=== PATIENT | male | born 1945 | race Caucasian/White ===

== ENCOUNTER 2022-02-28 07:15 | Outpatient (CLI) | payer OTHER, SELFPAY ==
[2022-02-28 13:12] LABS: Albumin* 3.8 g/dL (3.3-5.0); Chloride* 100 mmol/L (96-114); Potassium* 4.6 mmol/L (3.6-5.1); Sodium* 134 mmol/L (135-149)
[2022-02-28 13:14] LABS: Blood Urea Nitrogen* 36 mg/dL (7-30); Carbon Dioxide* 28 mmol/L (20-32); Cholesterol* 144 mg/dL (90-199); Creatinine* 1.5 mg/dL (0.5-1.5); Estimated Glomerular Filt Rate 48 ml/min
[2022-02-28 13:15] LABS: Calcium* 9.7 mg/dL (8.4-10.6); Glucose* 114 mg/dL (60-115); HDL Cholesterol* 58 mg/dL (>=40); LDL Cholesterol Calculated 51 mg/dL (<100); Phosphorus* 3.9 mg/dL (2.5-4.5); Triglycerides* 175 mg/dL (40-149); Uric Acid* 7.6 mg/dL (2.2-8.4)
[2022-02-28 13:19] LABS: Creatinine Urine 45.8 mg/dL
[2022-02-28 15:35] LABS: Microalbumin Creatinine Ratio 3120 mg/g (0-30); Microalbumin Urine 143 mg/dL
== END 2022-02-28 07:16 | disposition home or self-care (01) ==
PROVIDERS: PCP Family Medicine; Visit Provider Internal Medicine Nephrology
DX: E11.9 Type 2 diabetes mellitus without complications (principal); N18.32 Chronic kidney disease, stage 3b; R80.9 Proteinuria, unspecified
CPT/HCPCS: 80061; 80069; 82043; 82570; 84550; 87086

== ENCOUNTER 2022-05-14 09:15 | Outpatient (CLI) | payer OTHER, SELFPAY ==
--- NOTE | 2022-05-14 09:30 | CRLHL7_ITS ---
For Patients: As a result of the Cures Act, medical imaging exams and procedure reports are released immediately into your electronic medical record. You may view this report before your referring provider. If you have questions, please contact your health care provider. INDICATION: Lung cancer screening. History of smoking. High risk patient with greater than 50 pack-year smoking history. TECHNIQUE: Low-dose lung cancer screening non-contrast CT chest. Dose reduction techniques were used. COMPARISON: None. FINDINGS: NODULES: 3.9 millimeter nodule right lower lobe, . LUNGS AND PLEURA: Mild emphysema. No infiltrate. MEDIASTINUM: No adenopathy. CORONARY ARTERY CALCIFICATION: Severe. LIMITED UPPER ABDOMEN: Multiple renal cysts, unchanged from CT abdomen 04/26/2021. MUSCULOSKELETAL: Multilevel degenerative changes. IMPRESSION: 3.9 millimeter right lower lobe nodule. LUNG-RADS CATEGORY: 2: Benign. RADIOLOGIST RECOMMENDATION: Continue annual screening with low-dose CT chest in 12 months. Please note that all CT scans at this facility use dose modulation, iterative reconstruction, and/or weight-based dosing when appropriate to reduce radiation dose to as low as reasonably achievable. Dictated by Moises Trammell MD @ 05/14/2022 11:35:54 AM (Electronically Signed)
--- NOTE | 2022-05-14 10:45 | CRLHL7_ITS ---
For Patients: As a result of the Century Cures Act, medical imaging exams and procedure reports are released immediately into your electronic medical record. You may view this report before your referring provider. If you have questions, please contact your health care provider. INDICATION: Screening for abdominal aortic aneurysm TECHNIQUE: Ultrasound abdominal aortic screening COMPARISON: None FINDINGS: The proximal abdominal aorta measures 2.7 centimeter x 2.8 centimeter, mid aorta measures 1.8 centimeter x 1.9 centimeter, distal aorta measures 2.0 centimeter x 1.77, right common iliac artery measures 1.0 centimeter x 1.5 centimeter, and the left common iliac artery measures 1.0 centimeter x 1.4 centimeter. There are no periaortic abnormalities evident. IMPRESSION: The proximal abdominal aorta is mildly dilated up to 2.8 centimeters. Five year follow up recommended. Dictated by Moises yMers MD @ 05/14/2022 4:12:52 PM (Electronically Signed)
== END 2022-05-14 09:16 | disposition home or self-care (01) ==
PROVIDERS: PCP Family Medicine; Visit Provider Family Medicine
DX: F17.200 Nicotine dependence, unspecified, uncomplicated (principal); I77.811 Abdominal aortic ectasia; R91.1 Solitary pulmonary nodule; N28.1 Cyst of kidney, acquired; Z13.6 Encounter for screening for cardiovascular disorders; Z87.891 Personal history of nicotine dependence
CPT/HCPCS: 71271; 76706

== ENCOUNTER 2022-06-11 07:59 | Outpatient (CLI) | payer OTHER, SELFPAY ==
[2022-06-11 14:07] LABS: Albumin* 3.9 g/dL (3.3-5.0); Chloride* 101 mmol/L (96-114); Sodium* 136 mmol/L (135-149)
[2022-06-11 14:08] LABS: Potassium* 4.2 mmol/L (3.6-5.1)
[2022-06-11 14:10] LABS: Alanine Aminotransferase* 15 U/L (4-50); Alkaline Phosphatase* 74 U/L (40-150); Aspartate Amino Transferase* 18 U/L (12-35); Bilirubin Total* 0.7 mg/dL (0.1-1.5); Blood Urea Nitrogen* 30 mg/dL (7-30); Carbon Dioxide* 31 mmol/L (20-32); Creatinine* 1.6 mg/dL (0.5-1.5); Estimated Glomerular Filt Rate 44 ml/min; Glucose* 132 mg/dL (60-115); Total Protein* 6.3 g/dL (6.0-8.3)
[2022-06-11 14:11] LABS: Calcium* 9.6 mg/dL (8.4-10.6)
[2022-06-11 14:33] LABS: Vitamin D 25 Hydroxy* 21 ng/mL (30-80)
[2022-06-11 14:34] LABS: Creatinine Urine 111.3 mg/dL
[2022-06-11 15:05] LABS: Hepatitis C Virus Antibody* Negative (Negative)
[2022-06-11 15:41] LABS: Creatinine Urine 107.9 mg/dL
[2022-06-11 17:22] LABS: Microalbumin Creatinine Ratio 2920 mg/g (0-30); Microalbumin Urine 316 mg/dL
[2022-06-11 17:41] LABS: Total Protein Urine 774 mg/dL
[2022-06-12 09:34] LABS: Vitamin B12* 248 pg/mL (243-894)
== END 2022-06-11 08:00 | disposition home or self-care (01) ==
PROVIDERS: PCP Family Medicine; Visit Provider Family Medicine
DX: Z00.00 Encounter for general adult medical examination without abnormal findings (principal); E11.9 Type 2 diabetes mellitus without complications; I10 Essential (primary) hypertension; R73.03 Prediabetes; Z11.59 Encounter for screening for other viral diseases; Z13.21 Encounter for screening for nutritional disorder
CPT/HCPCS: 80053; 82043; 82306; 82570; 82607; 84156; 86803

== ENCOUNTER 2022-09-10 07:34 | Outpatient (CLI) | payer OTHER, SELFPAY | END 2022-09-10 07:35 | disposition home or self-care (01) | LOC: NFLDREF 21:18 | PROVIDERS: PCP Family Medicine; Visit Provider Family Medicine | DX: Z00.00 Encounter for general adult medical examination without abnormal findings (principal); R73.03 Prediabetes; E11.9 Type 2 diabetes mellitus without complications; I10 Essential (primary) hypertension; N18.30 Chronic kidney disease, stage 3 unspecified; F17.200 Nicotine dependence, unspecified, uncomplicated; G56.00 Carpal tunnel syndrome, unspecified upper limb; Z13.21 Encounter for screening for nutritional disorder; Z11.59 Encounter for screening for other viral diseases | CPT/HCPCS: 80061; 80069; 82043; 82306; 82310; 82570; 83520; 83970; 84165; 84550; 87086 ==

== ENCOUNTER 2022-09-18 08:59 | Outpatient (CLI) | payer OTHER, SELFPAY | END 2022-09-18 09:00 | disposition home or self-care (01) | LOC: NFLDREF 09-25 15:47 | PROVIDERS: PCP Family Medicine; Referring Provider Family Medicine; Visit Provider Internal Medicine Nephrology | DX: E11.9 Type 2 diabetes mellitus without complications (principal); I10 Essential (primary) hypertension; N18.30 Chronic kidney disease, stage 3 unspecified; R80.9 Proteinuria, unspecified; E78.5 Hyperlipidemia, unspecified | CPT/HCPCS: 82340; 82436; 82507; 83735; 83945; 83986; 84105; 84133; 84300; 84392; 84560 ==

== ENCOUNTER 2022-12-13 08:02 | Outpatient (CLI) | payer OTHER, SELFPAY ==
[2022-12-13 12:46] LABS: Vitamin D 25 Hydroxy* 35 ng/mL (30-80)
== END 2022-12-13 08:03 | disposition home or self-care (01) ==
PROVIDERS: PCP Family Medicine; Visit Provider Family Medicine
DX: E11.9 Type 2 diabetes mellitus without complications (principal); I10 Essential (primary) hypertension; N18.30 Chronic kidney disease, stage 3 unspecified; Z13.21 Encounter for screening for nutritional disorder; Z11.59 Encounter for screening for other viral diseases; R14.0 Abdominal distension (gaseous); R10.10 Upper abdominal pain, unspecified; R63.4 Abnormal weight loss
CPT/HCPCS: 80053; 80069; 82306; 82310; 82728; 83520; 83540; 83550; 83690; 83970; 84550; 86140; 86301; 86334; 86803

== ENCOUNTER 2022-12-17 09:49 | Outpatient (CLI) | payer OTHER, SELFPAY ==
--- NOTE | 2022-12-24 10:33 | ONC.NURNOTE ---
Addendum entered by Ailyn Villagran RN 12/25/22 12:01: Patient called today checking for an appointment. He was notified that the clinic was notified that the below need to be completed before scheduling. Patient questions whether Dr. Turk has been notified of this, and looking at note from 12/18/2022 it does not appear to be. Light Equipment Operator will notify Dr. Turk that patient has been referred to us and that patient wanted him aware. Original Note: Patient was discussed with clinic nurse and medical oncologist and patient needs the following tests done prior to scheduling: PET scan for MM Myeloma panel LDH and beta2 microglobulinema
== END 2022-12-17 09:50 | disposition home or self-care (01) ==
LOC: NFLDREF 12-21 14:27
PROVIDERS: PCP Family Medicine; Referring Provider Family Medicine; Visit Provider Family Medicine
DX: E11.9 Type 2 diabetes mellitus without complications (principal); E78.5 Hyperlipidemia, unspecified; I10 Essential (primary) hypertension; N18.30 Chronic kidney disease, stage 3 unspecified; R80.9 Proteinuria, unspecified
CPT/HCPCS: 82340; 82436; 82507; 83735; 83945; 83986; 84105; 84133; 84300; 84392; 84560

== ENCOUNTER 2022-12-17 13:24 | Outpatient (CLI) | payer OTHER, SELFPAY ==
--- NOTE | 2022-12-17 14:00 | CRLHL7_ITS ---
For Patients: As a result of the Century Cures Act, medical imaging exams and procedure reports are released immediately into your electronic medical record. You may view this report before your referring provider. If you have questions, please contact your health care provider. INDICATION: Abnormal weight loss. Upper abdominal pain. Elevated lipase. TECHNIQUE: CT of the abdomen and pelvis. 83 cc nonionic Isovue-370 administered. COMPARISON: Noncontrast abdominopelvic CT April 26, 2021. FINDINGS: Clear included lung bases. Coronary artery calcification compatible with coronary arterial disease. The liver, spleen, and pancreas are unremarkable. No evidence for pancreatitis. Normal-appearing gallbladder. Mild nodular prominence of the adrenal glands may reflect some degree of hyperplasia. No discrete adrenal gland mass. Multiple renal cysts bilaterally compatible with polycystic kidney disease. 5-6 mm nonobstructing stone mid right kidney. Well-circumscribed hemorrhagic or proteinaceous along the posterior superior margin of the right kidney measuring 1.8 x 3.2 cm previously 1.8 x 2.9 cm. Dense vascular calcification within the abdominal aorta and iliac arteries. Normal IVC. Normal urinary bladder. Trans urethral resection of the prostate gland. Mild prostatic enlargement. Dense calcifications within the prostate gland. The previously identified stone and blood within the urinary bladder is no longer evident. No bowel obstruction ileus. No ascites or lymphadenopathy. The stomach and duodenum although incompletely distended are within normal limits. Multilevel degenerative disc disease of the included thoracolumbar spine with a mid lumbar scoliotic curvature convex towards the right. No acute fractures. The included skeleton is negative for lytic or blastic lesions. IMPRESSION: 1. No acute abdominopelvic process identified. 2. Degenerative disc disease of the included thoracolumbar spine. 3. Multiple bilateral renal cysts. One of the cysts on the right is hyperdense compatible with hemorrhage or protein, unchanged. 4. Nonobstructing 6 mm stone upper right kidney unchanged. The blood and stone identified in the urinary bladder on the prior study is not evident today. Please note that all CT scans at this facility use dose modulation, iterative reconstruction, and/or weight-based dosing when appropriate to reduce radiation dose to as low as reasonably achievable. Dictated by Jose L Parker MD @ 12/17/2022 4:00:07 PM (Electronically Signed)
== END 2022-12-17 13:25 | disposition home or self-care (01) ==
LOC: CT 13:25
PROVIDERS: PCP Family Medicine; Visit Provider Family Medicine
DX: R63.4 Abnormal weight loss (principal); M51.35 Other intervertebral disc degeneration, thoracolumbar region; N28.1 Cyst of kidney, acquired; N20.0 Calculus of kidney; R10.10 Upper abdominal pain, unspecified; R11.0 Nausea; R14.0 Abdominal distension (gaseous); R74.8 Abnormal levels of other serum enzymes
CPT/HCPCS: 74177; Q9967

== ENCOUNTER 2022-12-20 10:49 | Outpatient (CLI) | payer OTHER, SELFPAY ==
--- NOTE | 2022-12-20 07:10 | W.ANESCHARGE ---
Anesthesia Charges Start Date/Time Anesthesia Start Date: 12/20/22 Anesthesia Start Time: 13:12 Stop Date/Time Anesthesia Stop Date: 12/20/22 Anesthesia Stop Time: 13:35 Summary Extremes of Age - Over 70 or under 1: MDA
--- NOTE | 2022-12-20 07:10 | PM.ANHP ---
HPI - Pre-Anesthesia History of Present Illness Time Seen by Provider: 12:20 Date Seen: 12/20/22 Date of service: 12/20/22 Source: patient and old records reviewed Narrative HPI: patient with bloating and upper abdominal pain. EGD for evaluation Review of Systems Status of ROS Reports: 6 or more systems reviewed and unremarkable except as noted in History and below [facility] Medical History (Updated 12/18/22 @ 08:38 by Misti Nash MD) Lung nodule ?R91.1 - Solitary pulmonary nodule (ICD-10) Surgical History (Updated 02/27/22 @ 13:48 by Danni Rascon) History of vasectomy ?Z98.52 - Vasectomy status (ICD-10) History of umbilical hernia repair ?Z98.890 - Other specified postprocedural states (ICD-10) ?Z87.19 - Personal history of other diseases of the digestive system (ICD-10) History of transurethral resection of prostate ?Z98.890 - Other specified postprocedural states (ICD-10) ?Z90.79 - Acquired absence of other genital organ(s) (ICD-10) History of cataract removal with insertion of prosthetic lens ?Z98.49 - Cataract extraction status, unspecified eye (ICD-10) ?Z96.1 - Presence of intraocular lens (ICD-10) Family History (Updated 02/27/22 @ 13:52 by Danni Rascon) Father Aortic aneurysm High blood pressure Mother Diabetes Breast cancer Social History (Updated 02/27/22 @ 13:53 by Danni Rascon) Narrative: former smoker-quit 2017 Smoking Status: Current every day smoker Meds Home Medications and Allergies Home Medications Medication Instructions Recorded Confirmed Type antiarthritic combination no.2 900 mg PO DAILY 03/01/22 12/13/22 History mg tablet (glucosamine-chondroitin) aspirin 81 mg tablet,delayed 81 mg PO QDAY 03/01/22 12/13/22 History release capsicum (cayenne) 450 mg capsule mg PO DAILY 03/01/22 12/13/22 History vitamins A,C,M-upna-njkzsd 2,148 1 tab PO BID 03/01/22 12/13/22 History mcg-113 mg-45 mg-17.4 mg tablet (PreserVision AREDS) tamsulosin 0.4 mg capsule 0.4 mg PO DAILY 06/11/22 12/13/22 History Allergies Allergy/AdvReac Type Severity Reaction Status Date / Time clindamycin Allergy Severe Anaphylaxis Verified 12/13/22 07:51 penicillin V Allergy Severe tongue Verified 12/13/22 07:51 sweankur ramos Sulfa (Sulfonamide Allergy Unknown Unknown Verified 12/13/22 07:51 Antibiotics) Exam Const Documenting provider has reviewed patient's vital signs: yes Common normals: no apparent distress, oriented x3, healthy appearing, alert and well nourished General appearance: cooperative and comfortable Orientation/consciousness: Yes awake HENMT Common normals: normocephalic Head and scalp: normocephalic Neck & C-Spine Common normals: full ROM Chest Chest: symmetrical chest wall rise Resp Common normals: normal respiratory effort, no retractions, no use of accessory muscles and clear to auscultation bilaterally Auscultation: clear to auscultation bilaterally Cardio Common normals: regular rate, regular rhythm, S1 normal heart sound, S2 normal heart sound and no murmurs Rate: regular rate Rhythm: regular rhythm Heart sounds: S1 normal and S2 normal Neuro Common normals: oriented x3 Sensorium/orientation: awake and alert Assessment and Plan Assessment and plan (1) Postprandial abdominal bloating: Status: Acute (2) Upper abdominal pain: Status: Acute Plan ok to proceed with sedation for endoscopy
--- NOTE | 2022-12-20 13:36 | P.ANES_ITS ---
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
== END 2022-12-20 10:50 | disposition home or self-care (01) ==
LOC: OP CLINIC 10:50
PROVIDERS: PCP Family Medicine; Visit Provider Surgery
DX: R19.8 Other specified symptoms and signs involving the digestive system and abdomen (principal); K44.9 Diaphragmatic hernia without obstruction or gangrene; K29.80 Duodenitis without bleeding
CPT/HCPCS: 43239; 731; 88305; 99100; J2704; J3490

== ENCOUNTER 2023-01-01 09:00 | Outpatient (CLI) | payer OTHER, SELFPAY | END 2023-01-01 09:01 | disposition home or self-care (01) | LOC: NFLDREF 01-02 02:59 | PROVIDERS: PCP Family Medicine; Referring Provider Family Medicine; Visit Provider Family Medicine | DX: D47.2 Monoclonal gammopathy (principal) | CPT/HCPCS: 82232; 82784; 83520; 83615; 84155; 84165; 86334 ==

== ENCOUNTER 2023-01-17 13:33 | Outpatient (CLI) | payer OTHER, SELFPAY ==
--- NOTE | 2023-01-17 14:00 | CRLHL7_ITS ---
For Patients: As a result of the Century Cures Act, medical imaging exams and procedure reports are released immediately into your electronic medical record. You may view this report before your referring provider. If you have questions, please contact your health care provider. INDICATION: Abnormality of the plasma protein suspected to represent multiple myeloma TECHNIQUE: Patient received 11.1 millicuries of 18 FDG PET-CT fluorodeoxyglucose) intravenously. Whole-body PET-CT imaging has been performed from the superior skull to base of feet [address] images have been obtained for attenuation correction and localization only. Blood glucose level: 122 mg/dL. COMPARISON: CT dated 12/17/2022. FINDINGS: Within the chest no abnormal uptake is identified in the mediastinum or hilar regions. The lungs demonstrate no significant abnormal uptake. No suspicious infiltrates or masses are seen. Chest wall and axilla demonstrates no abnormal uptake. The neck demonstrates no significant abnormal uptake with symmetric salivary and oropharyngeal activity. Skull base is unremarkable. The scalp demonstrates no significant abnormal uptake. Limited assessment intracranial structures is unremarkable. Liver and spleen demonstrate no abnormal uptake. Pancreas and bilateral adrenal glands demonstrate no significant abnormal uptake. Mildly prominent left adrenal gland is identified which is favored to be of benign etiology. Multiple bilateral renal cysts are identified. The hyperdense cyst laterally on the right noted. Small hyperdense nodule lateral left kidney noted. The retrocrural region and retroperitoneum demonstrate no abnormal uptake. Iliac maine chain and groin demonstrate no abnormal uptake. Prostate is enlarged. Probable TURP defect noted in the midline. The bladder is partially fluid-filled. The bladder wall is mildly thickened. Prominent physiologic bowel activity is noted. Imaging of the bilateral lower extremities demonstrates no significant abnormal uptake. Mild uptake in the region of the bilateral knees is noted. There are no suspicious skeletal lesions. No significant lytic lesions are noted. There is degenerative change of the thoracic and lumbar spine. IMPRESSION: 1. No suspicious skeletal lesions are noted. No hypermetabolic skeletal lesions are seen. 2. No suspicious lymphadenopathy is seen. 3. Other PET-CT findings as detailed above. Dictated by Allen Cosby MD @ 01/23/2023 7:35:22 AM (Electronically Signed)
== END 2023-01-17 13:34 | disposition home or self-care (01) ==
LOC: RAD 13:34
PROVIDERS: PCP Family Medicine; Visit Provider Family Medicine
DX: R77.8 Other specified abnormalities of plasma proteins (principal)
CPT/HCPCS: 78815; 78816; A9552

== ENCOUNTER 2023-01-31 09:35 | Outpatient (CLI) | payer OTHER, SELFPAY ==
[2023-01-31 09:55] VITALS: BMI 23.0
[2023-01-31 09:56] VITALS: BP 129/70; PULSE 62; RESP 20; TEMP 36.6; O2SAT 99
[2023-01-31 11:16] VITALS: BP 117/72; PULSE 72; RESP 14; O2SAT 95
[2023-01-31 11:23] VITALS: BP 126/86; PULSE 72; RESP 16; O2SAT 97
[2023-01-31 11:28] LABS: Basophils Absolute Auto 0.04 K/uL (0.00-0.30); Basophils Percent Auto 0.4 % (0.0-3.0); Eosinophils Absolute Auto 0.28 K/uL (0.00-0.50); Eosinophils Percent Auto 2.9 % (0.0-7.0); Hematocrit 42.4 % (37.0-53.0); Hemoglobin* 14.1 gm/dL (13.5-17.5); Immature Granulocytes Abs Auto 0.02 K/uL (0.00-0.30); Immature Granulocytes Pct Auto 0.2 %; Lymphocytes Percent Auto 17.6 % (20-44); Mean Corpuscular HGB Conc 33 gm/dL (32-36); Mean Corpuscular Hemoglobin 33 pg (26-34); Mean Corpuscular Volume 100 fL (80-100); Monocytes Percent Auto 6.2 % (0.0-11.0); Neutrophils Percent Auto 72.7 % (42.0-72.0); Platelet Count* 314 K/uL (140-440); RDW Coefficient of Variation % 12.3 % (11.5-15.5); Red Blood Count 4.26 m/uL (4.30-5.90); Reticulocyte Hemoglobin Equivi 32.9 pg (29.0-35.0); Reticulocyte Percent 1.4 % (0.5-2.0); Reticulocytes Absolute 0.06 # (0.03-0.08); White Blood Count* 9.79 K/uL (4.50-11.00)
[2023-01-31 11:35] VITALS: BP 148/53; PULSE 58; RESP 16; O2SAT 98
[2023-01-31 11:36] LABS: Slide Review Reflex No
--- NOTE | 2023-01-31 11:45 | W.ANESCHARGE ---
Anesthesia Charges Start Date/Time Anesthesia Start Date: 01/31/23 Anesthesia Start Time: 10:55 Stop Date/Time Anesthesia Stop Date: 01/31/23 Anesthesia Stop Time: 11:15 Summary Extremes of Age - Over 70 or under 1: MDA
--- NOTE | 2023-01-31 12:17 | W.ANESCHARGE ---
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
== END 2023-01-31 11:46 | disposition home or self-care (01) ==
LOC: OP CLINIC 09:35
PROVIDERS: PCP Family Medicine; Visit Provider Internal Medicine Hematology & Oncology
DX: D47.2 Monoclonal gammopathy (principal)
CPT/HCPCS: 01112; 36415; 38222; 85025; 85045; 88184; 88185; 88305; 88313; 88341; 88342; 88360; 99100; J1644; J2001; J2704

== ENCOUNTER 2023-02-14 14:30 | Outpatient (RCR) | payer OTHER, SELFPAY ==
--- NOTE | 2023-07-18 13:09 | ONC.NURNOTE ---
Agricultural Systems Specialist called to schedule Jose Luis's [address] Luevano, Jose Luis stated that he is following with his PCP and will call if he wants/needs to see Dr. Luevano.
== END 2023-07-23 23:59 | disposition home or self-care (01) ==
LOC: CCIC 14:30
PROVIDERS: PCP Family Medicine; Visit Provider Internal Medicine Hematology & Oncology
DX: D47.2 Monoclonal gammopathy (principal); N18.32 Chronic kidney disease, stage 3b; R63.4 Abnormal weight loss
CPT/HCPCS: 99202; 99204; 99212; 99214

== ENCOUNTER 2023-04-03 07:25 | Outpatient (CLI) | payer OTHER, SELFPAY | END 2023-04-03 07:26 | disposition home or self-care (01) | LOC: NFLDREF 04-05 11:05 | PROVIDERS: PCP Family Medicine; Referring Provider Family Medicine; Visit Provider Internal Medicine Nephrology | DX: E11.9 Type 2 diabetes mellitus without complications (principal); I10 Essential (primary) hypertension; N18.30 Chronic kidney disease, stage 3 unspecified; R63.4 Abnormal weight loss; R74.8 Abnormal levels of other serum enzymes; R80.9 Proteinuria, unspecified; Q61.3 Polycystic kidney, unspecified | CPT/HCPCS: 80069; 82043; 82310; 82570; 82728; 83520; 83540; 83550; 83970; 84165; 84550; 86140; 86334 ==

== ENCOUNTER 2023-04-04 07:55 | Outpatient (CLI) | payer OTHER, SELFPAY | END 2023-04-04 07:56 | disposition home or self-care (01) | LOC: NFLDREF 04-08 05:30 | PROVIDERS: PCP Family Medicine; Referring Provider Family Medicine; Visit Provider Internal Medicine Nephrology | DX: E11.9 Type 2 diabetes mellitus without complications (principal); I10 Essential (primary) hypertension; N18.30 Chronic kidney disease, stage 3 unspecified; Q61.3 Polycystic kidney, unspecified; R63.4 Abnormal weight loss; R74.8 Abnormal levels of other serum enzymes; R80.9 Proteinuria, unspecified | CPT/HCPCS: 82043; 82570; 84156; 87086 ==

== ENCOUNTER 2023-05-20 09:41 | Outpatient (CLI) | payer OTHER, SELFPAY ==
--- NOTE | 2023-05-20 10:00 | CRLHL7_ITS ---
For Patients: As a result of the Century Cures Act, medical imaging exams and procedure reports are released immediately into your electronic medical record. You may view this report before your referring provider. If you have questions, please contact your health care provider. INDICATION: Lung cancer screening. History of smoking. High risk patient with greater than 50 pack year smoking history. TECHNIQUE: Low-dose lung cancer screening non-contrast CT chest. Dose reduction techniques were used. COMPARISON: Low-dose noncontrast chest CT May 14, 2022. Abdominopelvic CT December 17, 2022. PET/CT scan January 17, 2023. FINDINGS: NODULES: None. Resolution of a previously described 3.9 millimeter right lower lobe pulmonary nodule described on the chest CT May 14, 2022. LUNGS AND PLEURA: Normal. MEDIASTINUM: Normal. No hilar or mediastinal lymphadenopathy. Scattered vascular calcification within the thoracic aorta. CORONARY ARTERY CALCIFICATION: Present in all 3 major territories. LIMITED UPPER ABDOMEN: Bilateral renal cysts. Hyperdense renal cyst posterior right kidney measuring 1.8 x 3.2 cm nonobstructing stone mid right kidney measuring up to 6 mm. MUSCULOSKELETAL: Thoracolumbar scoliosis with scattered hypertrophic and degenerative changes of the included thoracolumbar spine. IMPRESSION: Negative for lung cancer screening purposes. LUNG-RADS CATEGORY: 1: Negative. RADIOLOGIST RECOMMENDATION: Continue annual screening with low-dose CT chest in 12 months. Please note that all CT scans at this facility use dose modulation, iterative reconstruction, and/or weight-based dosing when appropriate to reduce radiation dose to as low as reasonably achievable. Dictated by Jose L Parker MD @ 05/21/2023 8:32:52 AM (Electronically Signed)
== END 2023-05-20 09:42 | disposition home or self-care (01) ==
LOC: CT 09:41
PROVIDERS: PCP Family Medicine; Visit Provider Family Medicine
DX: F17.200 Nicotine dependence, unspecified, uncomplicated (principal); Z12.2 Encounter for screening for malignant neoplasm of respiratory organs
CPT/HCPCS: 71271

== ENCOUNTER 2023-06-13 08:31 | Outpatient (CLI) | payer OTHER, SELFPAY ==
--- OUTSIDE RECORDS SUMMARY | 2023-06-13 08:35 | XMS_ITS | Encounter Summary ---
Author Name Unknown Organization [facility] Address [address] [place] [id number] Care Team Providers Care Medical Physics Teacher Name Role Phone Unavailable Primary Care Provider Unavailabl e Reason for Visit * Appointment Request (Routine) - Closed Specialty Diagnoses / Procedures Referred By Contac t Referred To Contact Nephrology and Hypertension Referral ID Status Reason Start Date Expiration Date Visits Re quested Visits Authorized [id number] Closed 08/09/2022 08/09/2023 1 Encounter Details Date Type Department Care Team (Latest Contact Info) Description 09/18/2022 8:30 AM CDT External Outreach Division of Nephrology and Hypertension in [place], [place] [address] [place] [address] Jose Luis Turk Jr., D.O. [address] [place] [phone] Chronic Kidney Disease (CKD), Stage 3b Glomerular Filtration Rate (GFR) 30 To 44 (HCC) (Primary Dx); Hypertension And Chronic Kidney Disease Stage 3 (HCC); Diabetes Mellitus Type 2 With Diabetic Nephropathy (HCC); Hyperparathyroidism Renal Secondary (HCC); Atherosclerosis Renal Artery (HCC); Urolithiasis; Gammopathy Monoclonal Nonspecific Social History Tobacco Use Types Packs/Day Years Used Date Smoking Tobacco: Never Assessed Nutrition Answer Date Recorded Nutrition: EVOO Fat Source Unknown 08/08 Nutrition: Servings of Fruits/Vegetables per Day Not on file 08/08/2020 Dental Answer Date Recorded Dental: Regular Dentist Unknown 08/12/19 21 Sex and Gender Information Value Date Recorded Sex Assigned at Not on file Gender Identity Not on file Sexual Orientation Not on file documented as of this encounter Last Filed Vital Signs Vital Sign Reading Time Taken Comments Blood Pressure 120/62 09/18/2022 9:07 AM CDT Pulse 50 09/18/2022 9:07 AM CDT Temperature - - Respiratory Rate - - Oxygen Saturation - - Inhaled Oxygen Concentration - - Weight 80.7 kg (177 lb 14.6 oz) 09/18/2022 9:07 AM CDT Height 170.8 cm (5' 7.24) 09/18/2022 9:07 AM CD T Body Mass Index 27.66 09/18/2022 9:07 AM CDT documented in this encounter Progress Notes * Jose Luis Turk Jr., D.O. - 09/18/2022 8:30 AM CDT Referring Provider Dr. Nash SUBJECTIVE REASON FOR VISIT [facility] Follow-up regards proteinuria, diabetes, hypertension and urolithiasis HISTORY OF PRESENT ILLNESS Mr. Cade is a 76 y.o. male who presents with the above issues. Feels well, no constitutional complaints, no bone pain, no B symptoms. He is had no chest pain no shortness of breath. No urinary outlet symptoms no gravel passage no hematuria no flank pain. He has been doing well with urine dilution efforts. Blood pressures have been somewhat variable but more recently in the 120s and 130s over 60s withoutorthostatic issues or lower extremity swelling. Being very careful with the salt. We discussed his 24 hour urine results, which show a IgG kappa monoclonal protein, his kappa lambdaratio is slightly elevated, but in keeping with his CKD. He also mentions he is had some unusual occurrences where he awakens with his mouth full of saliva,and has choked quite a bit, this is happened twice. We discussed that he has some issues with obstructive sleep apnea, and he always sleeps on his side regardless. The episodes which occurred, had him on his back. Past medical history: 1. Diabetes mellitus type 2 2. Hypertension 3. CKD stage IIIB 4. BPH 5. Hyperlipidemia 6. Obstructive sleep apnea Current Outpatient Medications: amLODIPine (NORVASC) 2.5 mg tablet, Take 2.5 mg by mouth., Disp: , Rfl: cholecalciferol (VITAMIN D3) 25 mcg (1,000 Unit) capsule, Take 1 tablet by mouth daily., Disp: , Rfl: hydroCHLOROthiazide (HYDRODIURIL) 25 mg tablet, Take 25 mg by mouth., Disp: , Rfl: lisinopriL (PRINIVIL,ZESTRIL) 40 mg tablet, , Disp: , Rfl: metFORMIN (GLUCOPHAGE) 500 mg tablet, Take 500-1,000 mg by mouth., Disp: , Rfl: omeprazole (PriLOSEC) [address] capsule, Take 20 mg by mouth daily., Disp: , Rfl: rosuvastatin (CRESTOR) 10 mg tablet, Take 10 mg by mouth., Disp: , Rfl: glipiZIDE (GLUCOTROL) 5 mg tablet, Take 5 mg by mouth., Disp: , Rfl: tamsulosin (FLOMAX) 0.4 mg 24 hr capsule, 2 (two) times a day., Disp: , Rfl: REVIEW OF SYSTEMS All other systems reviewed and are negative. OBJECTIVE BP 120/62 Pulse (!) 50 Ht 170.8 cm Wt 80.7 kg BMI 27.66 kg/m?? PHYSICAL EXAMINATION General: Awake alert oriented HEENT: DARA, EOMI, Mucous membranes moist, no oral lesions Neck: No Masses, No Bruits Lungs: Clear to ascultation Heart: Regular Rate and Rhythm, No ectopy Murmurs or rubs Abdomen: Soft, Non-tender Extremities: No cyanosis, No clubbing: No edema Neuro: Cranial Nerves intact, Gait is normal, strength grossly normal Skin: no suspicious lesions identified Psychiatric: Normal affect DIAGNOSTICS Note serum creatinine 2.0 mg/dL, microalbumin to creatinine ratio 3000 milligrams/gram, 24 hour urine protein showed a monoclonal IgG kappa monoclonal protein, similar in the bloodstream. Hemoglobin A1c was 6.9% ASSESSMENT / PLAN #1 Chronic Kidney Disease (CKD), Stage 3b Glomerular Filtration Rate (GFR) 30 To 44 (HCC) He is subtly been losing some GFR over time, this is despite excellent blood pressure and glycemic control, prompting concerns regards his paraprotein. I will see him back in 6 months, and monitor his immunoelectrophoresis, and determine whether we need to go further with respect to renal biopsy. In the meantime: 1. Goal blood pressure less than 120s over 80s 2. Goal glycosylated hemoglobin less than 7.5% 3. No NSAIDs or Cardenas 2 inhibitors 4. Continue with urine dilution efforts 5. Low-sodium diet less than 2500 mg sodium per day 6. I will have him back in 6 months we will repeat supersaturation studies of his urine, as well asevaluation of his paraprotein. #2 Hypertension And Chronic Kidney Disease Stage 3 (HCC) His goal blood pressures have definitely been achieved we will continue with his current regimen, he is somewhat bradycardic but asymptomatic we will continue to shoot for a goal of less than 120/80 which we seem to have achieved. He will continue to be active over the summer, and attempt to lose a bit of weight. #3 Diabetes Mellitus Type 2 With Diabetic Nephropathy (HCC) Excellent glycemic control I congratulated him, he is no neuropathic symptoms, he does have proteinuria which could be multifactorial-see below. #4 Hyperparathyroidism Renal Secondary (HCC) I am satisfied with his calcium and phosphorus. #5 Atherosclerosis Renal Artery (HCC) Goal blood pressures have been achieved, his situation is absent evidence of edema or flash pulmonary edema, we will monitor carefully. #6 Urolithiasis Metabolically and surgically inactive we will check supersaturation 6 months. 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 We will need to monitor this carefully, as he is subtly lost some GFR, and has a newly discovered paraprotein I will try to characterize this and we will consider whether renal biopsy may be necessary going forward. I will see him back in between 4 and 6 months. Total time: 40 minutes Counseling Time: 30 minutes Jose Luis Turk Jr., D.O. 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
--- OUTSIDE RECORDS SUMMARY | 2023-06-13 08:35 | XMS_ITS | Referral Summary ---
Author Name Unknown Organization [facility] Address [address] [place] [address] Care Team Providers Care Corsetier Name Role Phone Unavailable Primary Care Provider Unavailabl e Source Comments Patient records contain information from all sites at [facility]. For routine questions regarding patient records, call [phone] during business hours, M-F 8:00 AM - 5:00 PM Central Time. Record requests for emergency care only can be directed to [phone] at any time.[facility] Encounters Date Type Department Care Team Description 04/09/2023 9:00 AM PRIZE JACKER External Outreach Division of Nephrology and Hypertension in [place], [place] [address] [place] [address] Jose Luis Turk Jr., D.O. Chronic Kidney Disease (CKD), Stage 3b Glomerular Filtration Rate (GFR) 30 To 44 (HCC) (Primary Dx); Congenital Multiple Renal Cysts; Hypertension And Chronic Kidney Disease Stage 3 (HCC); Diabetes Mellitus Type 2 With Diabetic Nephropathy (HCC); Urolithiasis; Hyperparathyroidism Renal Secondary (HCC); Hyponatremia; Gammopathy Monoclonal Nonspecific from Last 3 Months Medications Medication Sig Dispensed Refills Start Date End Date Status amLODIPine (NORVASC) 2.5 mg tablet Take 2.5 mg by mouth. 0 07/14/2020 Active cholecalciferol (VITAMIN D3) 25 mcg (1,000 Unit) capsule Take 1 tablet by mouth daily. 0 12/21/2020 Active glipiZIDE (GLUCOTROL) 5 mg tablet Take 5 mg by mouth. 0 Active hydroCHLOROthiazide (HYDRODIURIL) 25 mg tablet Take 25 mg by mouth. 0 03/11/2021 Active lisinopriL (PRINIVIL,ZESTRIL) 40 mg tablet 0 05/03/2021 Active metFORMIN (GLUCOPHAGE) 500 mg tablet Take 500-1,000 mg by mouth. 0 11/19/2011 Active omeprazole (PriLOSEC) [address] capsule Take 20 mg by mouth daily. 0 11/19/2011 Active rosuvastatin (CRESTOR) 10 mg tablet Take 10 mg by mouth. 0 08/02/2020 Active tamsulosin (FLOMAX) 0.4 mg 24 hr capsule 2 (two) times a day. 0 Active Active Problems Problem Noted Date Diagnosed Date Hyponatremia 01/21/2023 Congenital Multiple Renal Cysts 01/21/2023 Gammopathy Monoclonal Nonspecific 09/18/2022 Urolithiasis 03/06/2022 Hyperparathyroidism Renal Secondary 09/12/2021 Chronic Kidney Disease (CKD) , Stage 3b Glomerular Filtration Rate (GFR) 30 To 44 03/18/2019 Diabetes Mellitus Type 2 With Diabetic Nephropat hy 03/18/2019 Hypertension And Chronic Kidney Disease Stage 3 03/18/2019 Osteodystrophy Renal 03/18/2019 Benign Prostatic Hyperplasia Hypertrophy With Ob struction 03/18/2019 Hyperlipidemia Mixed 03/18/2019 Gastroesophageal Reflux Disease 03/18/2019 Atherosclerosis Renal Artery 03/18/2019 Social History Tobacco Use Types Packs/Day Years Used Date Smoking Tobacco: Never Assessed Nutrition Answer Date Recorded Nutrition: EVOO Fat Source Unknown 08/08 Nutrition: Servings of Fruits/Vegetables per Day Not on file 08/08/2020 Dental Answer Date Recorded Dental: Regular Dentist Unknown 08/12/19 Sex and Gender Information Value Date Recorded Sex Assigned at Not on file Gender Identity Not on file Sexual Orientation Not on file Last Filed Vital Signs Vital Sign Reading Time Taken Comments Blood Pressure 138/70 04/09/2023 9:38 AM PRIZE JACKER Pulse 70 04/09/2023 9:38 AM PRIZE JACKER Temperature 36.2 ??C (97.2 ??F) 03/06/2022 9:25 AM CD T Respiratory Rate - - Oxygen Saturation - - Inhaled Oxygen Concentration - - Weight 78 kg (171 lb 15.3 oz) 04/09/2023 9:38 AM PRIZE JACKER Height 172.7 cm (5' 7.99) 04/09/2023 9:38 AM CS T Body Mass Index 26.15 04/09/2023 9:38 AM PRIZE JACKER Plan of Treatment Not on file
--- OUTSIDE RECORDS SUMMARY | 2023-06-13 08:35 | XMS_ITS ---
Author Name Unknown Organization [facility] Address [address] [place] [address] Care Team Providers Care Scow Derrick Operator Name Role Phone Unavailable Unavailable Unavailable Surgery Details Not on file Complications Check Surgery Details section. Procedure Estimated Blood Loss Check Surgery Details section. Procedure Findings Check Surgery Details section. Procedure Specimens Taken Check Surgery Details section.
--- OUTSIDE RECORDS SUMMARY | 2023-06-13 08:35 | XMS_ITS | Encounter Summary ---
Author Name Unknown Organization [facility] Address [address] [place] [address] Care Team Providers Care Motorized Squad Captain Name Role Phone Anastacio Mayberry MD Primary Care Provider [phone] Reason for Visit * Reason Comments Problem Focused Exam UR broken tooth/los t filling? Encounter Details Date Type Department Care Team Description 11/12/2022 9:40 AM CDT Office Visit [facility] [id number] [place] [phone] Rachel Veloz [place] [address] [place] [address] Problem Focused Exam (UR broken tooth/lost filling?) Social History Tobacco Use Types Packs/Day Years Used Date Smoking Tobacco: Former Cigarettes 0.5 50 Smokeless Tobacco: Never Alcohol Use Standard Drinks/Week Comments Yes 2 (1 standard drink = 0.6 oz pur e alcohol) daily Sex and Gender Information Value Date Recorded Sex Assigned at Not on file Gender Identity Not on file Sexual Orientation Not on file documented as of this encounter Progress Notes * Rachel Veloz DDS - 11/12/2022 9:40 AM CDT DENTAL PROBLEM FOCUS VISIT NOTE Subjective Pj is a 77 y.o. male who presents for Problem Focused Exam (UR broken tooth/lost filling?) Chief Complaint: Broken tooth, Lost Anabaptism My UR tooth broke about a week ago, it doesn't hurt but my tongue keeps going in the space and dcan feel something rough sticking out. No pain, sharpo to tongue. Pt. Points to tooth #5, brought crown #5 with him today. Objective/Assessment The following information was reviewed with the patient: Medical history, Dental history, and Radiographs. Radiographic Interpretation: #5 retained root Diagnosis: Loss of retention of dental crown (primary encounter diagnosis) Extensive root caries lesions involving dentin Retained tooth root Prognosis: #5 Hopeless Clinically the PFM is off with the coronal tooth structure fx'ed off inside. There is root caries DL to the mami percha. Discussed non-restorable tooth. Recommend extraction. Pt would like to avoid extracting it but it is rough to his tongue. Will remove decay, place glass ionomer over the mami percha and smooth to pt's comfort. Pt aware that he will likely need the root extracted someday. Plan Sedative filling #5 I discussed the Dental findings, Prognosis, Treatment options, Risks and complications associated with procedure, and Billing/Treatment estimate with the patient. All questions answered and they gaveinformed consent to proceed dental treatment/services. Procedural Pause: Patient identity verified: Yes Treatment plan/site verified with the patient: Yes Instruments/equipment verified: Yes Any medication/allergy contraindications: No Completed Procedures: ANESTHESIA: None used, procedure was minimally invasive. SEDATIVE DENOMINATIONAL, #5: Prepared with complete caries removal and minimal removal of tooth structure Isolated area with cotton rolls Liner/Varnish/Base: N/A Preparation filled with glass ionomer material : Shade: A3 Post-Op Instructions: Patient was advised of normal post-operative instructions and the need to extract the root if it becomes infected. Care was assisted by SOLO Harris Next Planned Visit: overdue recall No Medications ordered this encounter Rachel Veloz DDS 11/13/2022, 7:31 AM documented in this encounter Plan of Treatment Not on file documented as of this encounter Procedures Procedure Name Priority Date/Time Associated Diagnosis Comments 5 FILM-PERIAPICAL FIRST Routine 11/12/2022 9:40 A M CDT Extensive root caries lesions involving dentin Loss of retention of dental crown Retained tooth root 5 MODBL SEDATIVE FILLING Routine 11/12/2022 9:40 AM CDT Loss of retention of dental crown Extensive root caries lesions involving dentin Retained tooth root [id number] Routine 11/12/2022 9:40 AM C DT Extensive root caries lesions involving dentin Loss of retention of dental crown Retained tooth root LIMITED ORAL EVALUATION Routine 11/12/2022 9:40 A M CDT Extensive root caries lesions involving dentin Loss of retention of dental crown Retained tooth root documented in this encounter Visit Diagnoses Diagnosis Loss of retention of dental crown- Primary Extensive root caries lesions involving dentin Retained tooth root Retained dental root documented in this encounter Care Teams Motorized Squad Captain Relationship Specialty Start Date End Date Anastacio Mayberry MD [address] [place] [address] PCP - General Family Practice 09/23/17 documented as of this encounter
--- OUTSIDE RECORDS SUMMARY | 2023-06-13 08:35 | XMS_ITS | Encounter Summary ---
Author Name Unknown Organization [facility] Address [address] [place] [address] Care Team Providers Care Dye Maker Name Role Phone Anastacio Mayberry MD Primary Care Provider [phone] Reason for Visit * Reason Comments Broken Tooth Broken Gnosticism Encounter Details Date Type Department Care Team Description 11/05/2022 Telephone [facility] [address] [place], [place] [phone] Rachel Veloz DDS [address] [place], [place] [phone] Broken Tooth; Broken Gnosticism Social History Tobacco Use Types Packs/Day Years Used Date Smoking Tobacco: Former Cigarettes 0.5 50 Smokeless Tobacco: Never Alcohol Use Standard Drinks/Week Comments Yes 2 (1 standard drink = 0.6 oz pur e alcohol) daily Sex and Gender Information Value Date Recorded Sex Assigned at Not on file Gender Identity Not on file Sexual Orientation Not on file documented as of this encounter Nursing Notes * Yaneli Maldonado - 11/05/2022 3:59 PM CDT Pt not sure how much of tooth is missing and states he's pretty sure there was a filling there alsoso pt thinks tooth broke and most of filling broke or fell out. documented in this encounter Plan of Treatment Not on file documented as of this encounter Visit Diagnoses Not on filedocumented in this encounter Care Teams Dye Maker Relationship Specialty Start Date End Date Anastacio Mayberry MD [address] [place] [address] PCP - General Family Practice 09/23/17 documented as of this encounter
--- OUTSIDE RECORDS SUMMARY | 2023-06-13 08:35 | XMS_ITS | Clinical Summary ---
Author Name Unknown Organization [facility] Address [place], [place] [address] Care Team Providers Care Exercise Equipment Specialist Name Role Phone Pcp, No Primary Care Provider Unavailabl e Allergies Active Allergy Reactions Criticality Noted Date Comments Clindamycin Hives,Throat Swelling/Closing High 12/03/2017 Penicillins Hives 11/19/2011 Swollen tongue Resorcinol-Sulfur Other - Describe In Comment Field 11/19/2011 Not sure Medications Medication Sig Dispensed Refills Start Date End Date Status metFORMIN (GLUCOPHAGE) 500 mg tablet Take 500-1,000 mg by mouth 2 times daily with meals. 500 mg (1 tablet) in the morning, 1000 mg (2 tablets) in the evening 0 11/19/2011 Active omeprazole (PRILOSEC) 20 mg capsule Take 1 capsule by mouth once daily before a meal. 0 11/19/2011 Active aspirin 81 mg tablet Take 1 tablet by mouth once daily with a meal. 0 11/19/2011 Active GLUCOSAMINE/MSM/CHONDR OITIN A (GLUCOSAMINE [id number]) 500-83-400 mg tab Take 1 Tablet by mouth once daily. 0 08/09/2014 Active vit C,C-Ia-lkcbl-lutein-ze axan capsule Take 1 capsule by mouth once daily. 0 12/03/2017 Active metoprolol succinate (TOPROL XL) 50 mg sustained-release tablet Take 1 tablet by mouth once daily. 0 12/03/2017 Active glipiZIDE extended-release (GLUCOTROL XL) 5 mg Extended-Release tablet Take 1 tablet by mouth once daily before a meal. 0 12/03/2017 Active oxybutynin XL (DITROPAN XL) 10 mg CR tablet 1 tablet once daily. 0 12/03/2017 Active amLODIPine (NORVASC) 2.5 mg tablet Take 5 mg by mouth once daily. 0 03/12/2021 Active cholecalciferol (VITAMIN D3) 1,000 unit capsule Take 1 Tablet by mouth once daily. 0 12/21/2020 Active hydroCHLOROthiazide (HCTZ) 25 mg tablet Take 25 mg by mouth once daily. 0 03/11/2021 Active lisinopriL (PRINIVIL; ZESTRIL) 40 mg tablet 0 05/03/2021 Act giovanna rosuvastatin (CRESTOR) 10 mg tablet Take 10 mg by mouth at bedtime. 0 04/22/2021 Active tamsulosin (FLOMAX) 0.4 mg capsule Twice A Day 0 Active varenicline (CHANTIX) 1 mg tablet Take 1 mg by mouth. 0 Active traMADoL (ULTRAM) 50 mg tablet Take 1-2 Tablets (50-100 mg) by mouth every 6 hours if needed for Pain. 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 09/25/2021 History of cataract removal with insertion of prosthetic lens 09/25/2021 History of vasectomy 09/25/2021 History of umbilical hernia repair 09/25/2021 Stage 3 chronic kidney disease 03/18/2019 Renal osteodystrophy 03/18/2019 Mixed hyperlipidemia 03/18/2019 Gastroesophageal reflux disease 03/18/2019 Atherosclerosis of renal artery 03/18/2019 Diabetic nephropathy associa patricia with type 2 diabetes mellitus 03/18/2019 Hyperopia of both eyes with astigmatism and pres byopia 12/03/2017 History of colonic polyps 11/25/2015 Diabetes mellitus 08/09/2014 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), wet-R Senile nuclear sclerosis 08/09/2014 WOUND OPEN, HAND W/O COMPLICATION 09/18/1999 Encounters Date Type Department Care Team Description 05/17/2023 8:20 AM DIGITAL MARKETING PROJECT MANAGER Office Visit [facility] [place] [facility] [address] [place] [address] Serafin Yeager, OD Eye Exam (DM CEE) 05/17/2023 Travel from Last 3 Months Immunizations Name Administration Dates Next Due Influenza, High-dose Inactivated 019,03/10/2018,05/09/2017,2012 Influenza, High-dose Quadriv alent Inactivated 04/29/2021,04/26/2021 Influenza, IIV3 (Age >=3 years) 04/21/2014 Pneumococcal Poly,23-Valent (Pneumovax) 03/10/2018,05/09/2017 Pneumococcal conj 13-Valent (Prevnar 13) 02/10/2015 Td (Age >=7 Years) 12/25/2018 Td, Preservative Free (age > = 7 Years) 12/25/2018 Tdap 12/21/2008 Zoster (Shingrix-RZV, recombinant) 08/13/2018,,03/10/2018 Family History Medical History Relation Name Comments Other Mother glaucoma, retin al detachment Relation Name Status Comments Mother Social History Tobacco Use Types Packs/Day Years Used Date Smoking Tobacco: Every Day Cigarettes Cigars Smokeless Tobacco: Never Tobacco Cessation:Ready to Q uit: No; Counseling Given: Yes Alcohol Use Standard Drinks/Week Comments Yes 0 (1 standard drink = 0.6 oz pur e alcohol) couple times per week Social Connections Answer Date Recorded Frequency of Communication with Friends and Fami ly Not on file 10/01/2022 Financial Resource Strain Answer Date R ecorded Difficulty of Paying Living Expenses 3 09/25/2021 Difficulty of Paying Living Expenses Not on file 09/25/2021 Food Insecurity Answer Date Recorded Worried About Running Out of Food in the Last Ye ar 1 09/25/2021 Transportation Needs Answer Date Record ed Lack of Transportation (Medical) 1 09/25/2021 Housing Stability Answer Date Recorded Unable to Pay for Housing in the Last Year 1 09/25/2021 Sex and Gender Information Value Date Recorded Sex Assigned at Not on file Gender Identity Not on file Sexual Orientation Not on file Obstetrics History Last Filed Vital Signs Vital Sign Reading Time Taken Comments Blood Pressure 131/63 09/30/2021 7:39 AM CDT Pulse 60 09/30/2021 7:39 AM CDT Temperature 36.7 ??C (98.1 ??F) 09/30/2021 7:39 AM CD T Respiratory Rate 16 09/30/2021 7:39 AM CDT Oxygen Saturation 97% 09/30/2021 7:39 AM CDT Inhaled Oxygen Concentration - - Weight 83.5 kg (184 lb 1.6 oz) 09/29/2021 8:57 A M CDT Height 170.2 cm (5' 7) 09/29/2021 8:57 AM CDT Body Mass Index 28.83 09/29/2021 8:57 AM CDT Plan of Treatment Health Maintenance Due Date Last Done Comments Depression screening for age 12+ 1957 Hepatitis C screening for ag e 18-79 11/05/1963 Medicare Wellness for age 65+ 2010 BMI (ht and wt on same day) for age 18+ 09/25/2022 09/25/2021 Influenza for age 65+ 02/01/2023 04/29/2021 , 04/26/2021, 03/27/2019, Additional history exists Tetanus booster 12/25/2028 12/25/2018, 12/02, 12/21/2008 Tdap Completed 12/21/2008 Pneumococcal series for age 65+ Completed 03/10/2018, 05/09/2017, 02/10/2015 Zoster (shingles) series for age 50+ Completed 08/13/2018, 08/13/2018, 03/10/2018 COVID-19 vaccine series Completed 05/03/20, 03/06/2022, 09/12/2021, Additional history exists Advance Directives Latest Code Status on File Code Status Date Activated Date Inactivated Comments Full Code 09/29/2021 8:51 AM 09/30/2021 4:19 PM Question Answer Comments Code Status Discussion: Unable to Assess Preferences, Provider to review later Care Teams Exercise Equipment Specialist Relationship Specialty Start Date End Date Pcp, No . PCP - General 09/20/21
--- OUTSIDE RECORDS SUMMARY | 2023-06-13 08:35 | XMS_ITS | Encounter Summary ---
Author Name Unknown Organization [facility] Address [address] [place] [address] Care Team Providers Care Welt Slasher Name Role Phone Unavailable Primary Care Provider Unavailabl e Reason for Visit * Appointment Request (Routine) - Closed Specialty Diagnoses / Procedures Referred By Contac t Referred To Contact Nephrology and Hypertension Referral ID Status Reason Start Date Expiration Date Visits Re quested Visits Authorized [id number] Closed 03/08/2023 03/07/2024 1 1 Encounter Details Date Type Department Care Team (Latest Contact Info) Description 04/09/2023 9:00 AM COMMERCIAL PROPERTY ADMINISTRATOR External Outreach Division of Nephrology and Hypertension in [place], [place] [address] [place] [address] Jose Luis Turk Jr., D.O. [address] [place] [phone] Chronic Kidney Disease (CKD), Stage 3b Glomerular Filtration Rate (GFR) 30 To 44 (HCC) (Primary Dx); Congenital Multiple Renal Cysts; Hypertension And Chronic Kidney Disease Stage 3 (HCC); Diabetes Mellitus Type 2 With Diabetic Nephropathy (HCC); Urolithiasis; Hyperparathyroidism Renal Secondary (HCC); Hyponatremia; Gammopathy Monoclonal Nonspecific Social History Tobacco Use [...] Comments Blood Pressure 138/70 04/09/2023 9:38 AM COMMERCIAL PROPERTY ADMINISTRATOR Pulse 70 04/09/2023 9:38 AM COMMERCIAL PROPERTY ADMINISTRATOR Temperature - - Respiratory Rate - - Oxygen Saturation - - Inhaled Oxygen Concentration - - Weight 78 kg (171 lb 15.3 oz) 04/09/2023 9:38 AM COMMERCIAL PROPERTY ADMINISTRATOR Height 172.7 cm (5' 7.99) 04/09/2023 9:38 AM CS T Body Mass Index 26.15 04/09/2023 9:38 AM COMMERCIAL PROPERTY ADMINISTRATOR documented in this encounter Progress Notes * Jose Luis Turk Jr., D.O. - 04/09/2023 9:00 AM CST Referring Provider: No primary care provider on file. SUBJECTIVE REASON FOR VISIT [facility] Follow-up regards a complex set of issues including urolithiasis, CKD stage IIIB, hypertension, diabetes mellitus type 2, and Ig G kappa monoclonal gammopathy HISTORY OF PRESENT ILLNESS Mr. Cade is a 77 y.o. male who presents with the above matters. He is felt well since our last visit although is experiencing a few more myalgias and arthralgias recently with the seasonal change. Specifically however no weight loss, no fevers no chills no night sweats or other B type symptoms. Note that his weight has increased from 71-78 kg since our last visit without lower extremity swelling. I greatly appreciate the input from our Hematology colleagues, and he underwent bone marrow aspiration and biopsy in January 2023, documenting the IgG kappa monoclonal gammopathy, but no signs of myeloma or plasma cell leukemia. I appreciate that his light chain levels have remained stable with his labs done this April, and that his serum calcium level remains normal, without any anemia, with alow C-reactive peptide. His blood pressures been excellent he has had no orthostatic issues or swelling. No chest pain shortness of breath. He has been free of hypoglycemic events, I note his most recent hemoglobin A1c is 6.8%. Continues on oral hypoglycemic agents, he does not check his blood sugar regularly. No other skin changes, no neuropathic issues, no changes in voice, or central nervous system complaints. He has also been free of hematuria, flank pain or gravel passage. Past medical history: 1. Diabetes mellitus type 2 2. Hypertension 3. Hyperlipidemia 4. Monoclonal gammopathy-IgG kappa 5. Urolithiasis metabolically and surgically indeterminate Current Outpatient Medications: amLODIPine (NORVASC) 2.5 mg tablet, Take 2.5 mg by mouth., Disp: , Rfl: cholecalciferol (VITAMIN D3) 25 mcg (1,000 Unit) capsule, Take 1 tablet by mouth daily., Disp: , Rfl: glipiZIDE (GLUCOTROL) 5 mg tablet, Take 5 mg by mouth., Disp: , Rfl: hydroCHLOROthiazide (HYDRODIURIL) 25 mg [...] 10 mg by mouth., Disp: , Rfl: tamsulosin (FLOMAX) 0.4 mg 24 hr capsule, 2 (two) times a day., Disp: , Rfl: REVIEW OF SYSTEMS All other systems reviewed and are negative. OBJECTIVE BP 138/70 Pulse 70 Ht 172.7 cm Wt 78 kg BMI 26.15 kg/m?? PHYSICAL EXAMINATION General: Awake alert oriented [...] suspicious lesions identified Psychiatric: Normal affect DIAGNOSTICS Appreciate serum creatinine 1.7 mg/dL, hemoglobin A1c 6.8%, urinary microalbumin to creatinine ratio 3150, stable from 1 year ago ASSESSMENT / PLAN #1 Chronic Kidney Disease (CKD), Stage 3b Glomerular Filtration Rate (GFR) 30 To 44 (HCC) This on the background of hypertensive ischemic and diabetic nephrosclerosis. His proteinuria is albuminuria, and hence not due to his monoclonal gammopathy at this point. Nonetheless we will continue to monitor from this perspective. 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 Going forward: 1. Goal blood pressure less than 120/80 2. Goal glycosylated hemoglobin less than 7.5% 3. Continue to pursue vigorous hydration regards his history of urolithiasis 4. Continue to stay physically active and avoid weight gain 5. No NSAIDs or Cardenas 2 inhibitors 6. We will consider further diagnostic issues including renal biopsy should his situation progress, 7. We will consider a repeat imaging study in 1 year. 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 We will continue to monitor. #3 Hypertension And Chronic Kidney Disease Stage 3 (HCC) His blood pressure is not quite at goal correction values, he is on 4 agents, including a diuretic.I asked him to be cautious with the sodium continue to stay active, we will not add any further agents at this point. #4 Diabetes Mellitus Type 2 With Diabetic Nephropathy (HCC) Excellent glycemic control, I did ask if he will be willing to check his sugars on an intermittent basis at least to assure that we are not experiencing hypoglycemia. #5 Urolithiasis Appears to be metabolically and surgically inactive. Emphasize the matter of urine dilution efforts as a primary focus for him. Also asked him to avoid high fructose corn syrup beverages, minimize oxalate foods including chocolate, tea, nuts, spinach. Asked him to avoid any high-protein diets. Low-sodium diet will be quite important for him as well. #6 Hyperparathyroidism Renal Secondary (HCC) Calcium phosphorus PTH levels are acceptable. #7 Hyponatremia Fortunately this is resolved #8 Gammopathy Monoclonal Nonspecific We will continue to track this I will see him back in 6 months. Total time: 45 minute Counseling Time: 30 minutes Jose Luis Turk Jr., D.O. ERCIAL PROPERTY ADMINISTRATOR documented in this encounter Plan of Treatment Not on file documented as of this encounter Visit Diagnoses Diagnosis Chronic Kidney Disease (CKD), Stage 3b Glomerular Filtration Rate (GFR) 30 To 44 (HCC)- Primary Congenital Multiple Renal Cysts Hypertension And Chronic Kidney Disease Stage 3 (HCC) Diabetes Mellitus Type 2 With Diabetic Nephropathy (HCC) Urolithiasis Hyperparathyroidism Renal Secondary (HCC) Hyponatremia Gammopathy Monoclonal Nonspecific documented in this encounter
--- OUTSIDE RECORDS SUMMARY | 2023-06-13 08:35 | XMS_ITS | Clinical Summary ---
Author Name Unknown Organization [facility] Address [address] [place] [address] Care Team Providers Care Business Development Engineer Name Role Phone Unavailable Primary Care Provider Unavailabl e Source Comments Patient records contain information from all sites at [facility]. For routine questions regarding patient records, call [phone] during business hours, M-F 8:00 AM - 5:00 PM Central Time. Record requests for emergency care only can be directed to [phone] at any time.[facility] Medications Medication Sig Dispensed Refills Start Date [...] Reflux Disease 03/18/2019 Atherosclerosis Renal Artery 03/18/2019 Encounters Date Type Department Care Team Description 04/09/2023 9:00 AM PROBATION AND PATROL AGENT External Outreach Division of Nephrology and Hypertension in [place], [place] [address] [place] [address] Jose Luis Turk Jr., D.O. Chronic Kidney Disease (CKD), Stage 3b Glomerular Filtration Rate (GFR) 30 To 44 (HCC) (Primary Dx); Congenital Multiple Renal Cysts; Hypertension And Chronic Kidney Disease Stage 3 (HCC); Diabetes Mellitus Type 2 With Diabetic Nephropathy (HCC); Urolithiasis; Hyperparathyroidism Renal Secondary (HCC); Hyponatremia; Gammopathy Monoclonal Nonspecific from Last 3 Months Social History Tobacco Use Types Packs/Day Years [...] Comments Blood Pressure 138/70 04/09/2023 9:38 AM PROBATION AND PATROL AGENT Pulse 70 04/09/2023 9:38 AM PROBATION AND PATROL AGENT Temperature 36.2 ??C (97.2 ??F) 03/06/2022 9:25 AM CD T Respiratory Rate - - Oxygen Saturation - - Inhaled Oxygen Concentration - - Weight 78 kg (171 lb 15.3 oz) 04/09/2023 9:38 AM PROBATION AND PATROL AGENT Height 172.7 cm (5' 7.99) 04/09/2023 9:38 AM CS T Body Mass Index 26.15 04/09/2023 9:38 AM PROBATION AND PATROL AGENT Plan of Treatment Health Maintenance Due Date Last Done Comments Creatinine Level (Kidney Fun ction Test) 1945 Diabetic Office Visit with F oot Exam 1945 Hemoglobin A1C 1945 Hepatitis C Screening 1945 Sodium Level 1945 Urine Albumin 1945 Hepatitis B Vaccines (1 of 3 - Risk 3-dose series) 2005 Depression Screening (Annual PHQ-2) 06/03/2022 Fall Risk Screen (Annual) 06/03/2022 Potassium Level 09/25/2022 09/25/2021 Dilated Eye Exam 04/04/2023 04/04/2022, 05/03/2020 Office Visit for Blood Press ure Check / Re-check 04/09/2024 04/09/2023 DTaP,Tdap,and Td Vaccines (4 - Td or Tdap) 12/25/2028 12/25/2018, 12/25/2018, 12/21/2008 Pneumococcal vaccine (65+ years) Completed 03/10/2018, 05/09/2017, 02/10/2015 Zoster Vaccines Completed 08/13/2018, 03/10/2018 COVID-19 Vaccine Completed 05/03/2023, 09/2021, 09/12/2021, Additional history exists Influenza Vaccine Completed 05/03/2023, , 04/29/2021, Additional history exists
--- OUTSIDE RECORDS SUMMARY | 2023-06-13 08:35 | XMS_ITS | Clinical Summary ---
Author Name Unknown Organization [facility] Address [address], [place] [address] Care Team Providers Care Tea Tree Farmer Name Role Phone Anastacio Mayberry MD Primary Care Provider [phone] Source Comments You are receiving this document as you are listed as the primary care provider,follow-up provider, or the patient has been referred to you for consultation.This is in compliance with the Medicare and[facility] EHR Incentive Program,which states Providers who transition their patient to another setting of careor provider of care or refers their patient to another provider of care shouldprovide summary care record for each transition of care or referral. [employer] Allergies Active Allergy Reactions Criticality Noted Date Comments Clindamycin Anaphylaxis,Hives,Angioedema High 2020 Penicillins Anaphylaxis,Hives,Angioedema High 2020 Sulfa Antibiotics Hives High 05/17/2017 Medications Medication Sig Dispensed Refills Start Date End Date Status glipiZIDE (GLUCOTROL) 5 MG tabletIndications:Ty pe 2 Diabetes Mellitus Take 5 mg by mouth two times a day before meals. Indications: Type 2 Diabetes 0 Active metFORMIN (GLUCOPHAGE) 500 MG tabletIndications:Ty pe 2 Diabetes Mellitus Take 500 mg by mouth two times a day with meals. Indications: Type 2 Diabetes 0 Active lisinopril (ZESTRIL) 20 MG tabletIndications:Hy pertension Take 40 mg by mouth daily. Indications: High Blood Pressure Disorder 0 Active omeprazole (PRILOSEC-OTC) 20 MG tabletIndications:He artburn Take 20 mg by mouth daily. Indications: Heartburn 0 Active oxybutynin (DITROPANXL) 10 MG 24 hour release tabletIndications:Ur inary Frequency,proteins in urine Take 10 mg by mouth daily. Indications: Frequent Urination, proteins in urine 0 Active simvastatin (ZOCOR) 40 MG tablet Take 40 mg by mouth daily at bedtime. 0 Active tamsulosin (FLOMAX) 0.4 MG CAPS capsule Take 0.4 mg by mouth daily. 0 Active hydroCHLOROthiazide (ORETIC) 12.5 MG tabletIndications:Hy pertension Take 25 mg by mouth daily. Indications: High Blood Pressure Disorder 0 Active metoprolol succinate (TOPROL XL) 25 MG 24 hour release tablet Take 25 mg by mouth daily. 0 Active varenicline (CHANTIX) 1 MG tablet Take 1 mg by mouth two times a day. Take after eating with a full glass of water.NOTE:Dispense as maintenance for refills only. 0 Active amLODIPine (NORVASC) 2.5 MG tablet Take 2.5 mg by mouth two times a day. 0 07/14/2020 Active omeprazole (PRILOSEC) 20 MG capsule Take 20 mg by mouth daily. 0 08/05/2020 Active rosuvastatin (CRESTOR) 10 MG tablet Take 10 mg by mouth daily at bedtime. at bedtime 0 08/02/2020 Active Active Problems No known active problems Social History Tobacco Use Types Packs/Day Years Used Date Smoking Tobacco: Former Cigarettes 0.5 50 Smokeless Tobacco: Never Tobacco Cessation:Ready to Q uit: Yes Alcohol Use Standard Drinks/Week Comments Yes 2 (1 standard drink = 0.6 oz pur e alcohol) daily Sex and Gender Information Value Date Recorded Sex Assigned at Not on file Gender Identity Not on file Sexual Orientation Not on file Last Filed Vital Signs Vital Sign Reading Time Taken Comments Blood Pressure 148/79 09/22/2018 8:18 AM CDT Pulse 66 03/27/2019 9:41 AM CDT Temperature - - Respiratory Rate - - Oxygen Saturation - - Inhaled Oxygen Concentration - - Weight - - Height - - Body Mass Index - - Plan of Treatment Health Maintenance Due Date Last Done Comments Hep C Screening (Preventive Services) 1945 Medicare Welcome Visit 1945 COVID-19 Vaccine (#1) 05/06/1946 Influenza (#1) 2023 03/27/2019, 10/0 01/2018, 05/09/2017, Additional history exists DTaP/Tdap/Td (3 - Tdap) 12/25/2028 12/25/2018, 12/21 Pneumococcal 65+ Yrs Completed 03/10/2018, 05/09/2017, 02/10/2015 Zoster/Shingles Completed 08/13/2018, 03/10/2018 HepA Aged Out No longer eligi ble based on patient's age to complete this topic HepB Aged Out No longer eligi ble based on patient's age to complete this topic Hib Aged Out No longer eligi ble based on patient's age to complete this topic IPV (Polio) Aged Out No longer eligi ble based on patient's age to complete this topic MCV4 Aged Out No longer eligi ble based on patient's age to complete this topic Care Teams Tea Tree Farmer Relationship Specialty Start Date End Date Anastacio Mayberry MD [address] [place] [place] [place] [id number] PCP - General Family Practice 09/23/17
--- OUTSIDE RECORDS SUMMARY | 2023-06-13 08:35 | XMS_ITS | Encounter Summary ---
Author Name Unknown Organization [facility] Address [address] [place] [address] Care Team Providers Care Library Cataloging Technician Name Role Phone Unavailable Primary Care Provider Unavailabl e Reason for Visit * Appointment Request (Routine) - Closed Specialty Diagnoses / Procedures Referred By Contac t Referred To Contact Nephrology and Hypertension Referral ID Status Reason Start Date Expiration Date Visits Re quested Visits Authorized [id number] Closed 01/11/2023 01/11/2024 1 1 Encounter Details Date Type Department Care Team (Latest Contact Info) Description 01/21/2023 3:30 PM CDT External Outreach Division of Nephrology and Hypertension in [place], [place] [address] [place] [address] Jose Luis Turk Jr., D.O. [address] [place] [phone] Chronic Kidney Disease (CKD), Stage 3b Glomerular Filtration Rate (GFR) 30 To 44 (HCC) (Primary Dx); Hypertension And Chronic Kidney Disease Stage 3 (HCC); Diabetes Mellitus Type 2 With Diabetic Nephropathy (HCC); Hyperparathyroidism Renal Secondary (HCC); Hyponatremia; Urolithiasis; Gammopathy Monoclonal Nonspecific; Congenital Multiple Renal Cysts Social History Tobacco Use Types Packs/Day Years [...] Sign Reading Time Taken Comments Blood Pressure 134/72 01/21/2023 4:37 PM CDT Pulse 72 01/21/2023 4:37 PM CDT Temperature - - Respiratory Rate - - Oxygen Saturation - - Inhaled Oxygen Concentration - - Weight 77.1 kg (169 lb 15.6 oz) 01/21/2023 4:37 PM CDT Height 171.5 cm (5' 7.52) 01/21/2023 4:37 PM CD T Body Mass Index 26.21 01/21/2023 4:37 PM CDT documented in this encounter Progress Notes * Jose Luis Turk Jr., D.Jeffrey. - 01/21/2023 3:30 PM CDT Referring Provider: No primary care provider on file. SUBJECTIVE REASON FOR VISIT [facility] out reach CKD Clinic Follow-up regards multi cystic kidney disease, prior history of suspected right renal artery stenosis, diabetes mellitus type 2, chronic kidney disease stage IIIB, monoclonal gammopathy of unknown significance, and metabolically and surgically inactive urolithiasis HISTORY OF PRESENT ILLNESS Mr. Cade is a 77 y.o. male who presents with the above matters, but more disturbing only, on thebackground of some weight loss. I appreciate that objectively 1 we visited last year in March hisweight was 81 kg, now down to 77 kg. This has been an unintentional weight loss, and as he met witha new provider, , and mentioned that there had been approximately a 20 lb weight loss over the past 2+ years an extensive evaluation has been undertaken. Appreciate that he has a known monoclonal gammopathy. His kappa to lambda ratio is slightly over 2.However his serum has consistently demonstrated a monoclonal IgG kappa monoclonal protein. The concentration of this has not changed. The paraprotein evaluations at [facility] are sent to [facility] labs. These send out labs are often somewhat challenging to interpret. Allegedly, Dr. Nash had asked for the patient to do a 24 hour urine paraprotein evaluation, it does not appear that this is actually what was reported, but rather a repeat serum evaluation but this is unclear due to the labeling issues in the EHR. He is not had night sweats he is not had B type symptoms no bone pain, note that his serum calcium level is normal at 9.6. Appreciate that his total free kappa light chain levels are 101.4 milligrams/liter, with total free light chain levels at 49.6 mg per L for a ratio of 2.04. This has not changed over time. He has known proteinuria, with microalbumin to creatinine ratios at 2500 mg in 2019 when I visited with him. These have improved over time with better glycemic and blood pressure control. 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 A PET-CT scan was also performed which is not formally read. We reviewed this [id number] today, we do not see any hypermetabolic uptake other than in the bladder and the brain pre. He is not anemic, and he had upper endoscopy performed which was negative for celiac disease as well. He is still smoking, less than half a pack per day, and does drink some alcohol. Roughly 2-3 drinkson some occasions but less on a daily basis. He has had no other stool changes, no melena, no hematochezia, he is not had endoscopies since the June of 2014. He has been able to discontinue his glipizide, continues on a lower dose of metformin with respect to his diabetes. His hemoglobin A1c is excellent at 6.3%, he is not check his sugars often, but denies any hypoglycemic events. His blood pressures been excellent, he has had no orthostatic issues. He denies cough, no hemoptysis, no PND nor orthopnea no lower extremity swelling. From the perspective of urolithiasis, I have he admits that in December he was doing poorly with his urine dilution efforts. His 24 hour urine studies demonstrate this, as his urine volume was only 1700 cc. He is not passed any blood, no gravel, he is not had flank pain. Reviewed his CT scan which shows the multi cystic kidney disease, and urolithiasis. In the past he has been demonstrated to have renal artery disease on the right side, with a peak velocity of 236 centimeters/second. This was last checked in spring of this year we will check this again next year. No flash pulmonary edema no hypokalemia History reviewed. No pertinent past medical history. Current Outpatient Medications: amLODIPine (NORVASC) 2.5 mg [...] systems reviewed and are negative. OBJECTIVE BP 134/72 Pulse 72 Ht 171.5 cm Wt 77.1 kg BMI 26.21 kg/m?? PHYSICAL EXAMINATION General: Awake alert oriented [...] suspicious lesions identified Psychiatric: Normal affect DIAGNOSTICS Normal serum creatinine level, note urine microalbumin to creatinine ratio is 3360 milligrams/gram,an increase in proteinuria, but not in paraprotein in the urine. 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 Against the latter issue is the preserved ratio, and the elevated light chain levels which are likely a monoclonal gammopathy of unknown significance, superimposed on advanced CKD. The challenge moving forward is his weight loss, and whether a marrow aspirate would be aguilar in this situation. He is visiting with our oncology team this week regards this matter. Going forward: 1. Continue goal blood pressures less than 120/80 2. Goal glycosylated hemoglobin less than 7.5% 3. No NSAIDs or Cardenas 2 inhibitors 4. I will have him return to clinic in 4 months 5. Strongly consider a bone marrow aspiration and biopsy 6. Repeat renal ultrasound to survey for renal artery stenosis 7. As below continue to foster urine dilution efforts low-sodium, low oxalate in order to prevent further episodes of surgical activity from the perspective of his urolithiasis 8. Dietary consult, alcohol abstinence, discontinue smoking 9. Consider colonoscopy #2 Hypertension And Chronic Kidney Disease Stage 3 (HCC) His goal blood pressures have been met, I am happy with his current antihypertensive regimen. Certainly his weight loss has assisted this, however is providing some concern as mentioned above. We will continue on his current antihypertensive regimen. #3 Diabetes Mellitus Type 2 With Diabetic Nephropathy (HCC) Well controlled on metformin alone we will continue for now. #4 Hyperparathyroidism Renal Secondary (HCC) Serum calcium level is acceptable, we do not need to add more vitamin-D, particularly on the background of his history of metabolically and surgically indeterminate urolithiasis. #5 Hyponatremia His urine is less than maximally dilute, he is doing his best to perform urine dilution efforts. Anextensive search for paraneoplastic phenomenon is underway, his serum sodium level has run slightlybelow normal for many years, and I suspect that he truly has reset Osmo stat. #6 Urolithiasis This is metabolically and surgically indeterminate but most likely inactive. Going forward: 1. Needs to make at least 2.5 L urine per day, requiring him to drink at least 3 L per day. He is keeping track of this and has 3 L bottles in his Fridge which he fills and drinks daily 2. Low-sodium diet 3. Low oxalate diet, decreased in nuts, chocolate, spinach, and kale 4. Minimal calcium and vitamin-D supplements at this point 5. We will repeat 24 hour urine supersaturation studies early next spring #7 Gammopathy Monoclonal Nonspecific Please see above discussion, I suspect that his increased paraproteins are consequence not only of his MGUS but his CKD. Given his weight loss however we may need to consider moving ahead with bone marrow aspiration. Although ordered, I do not see that his 24 hour urine immuno electrophoresis was actually performed. This would be valuable, but note that his microalbumin to creatinine ratio, while elevated is mostlikely on the background of his diabetes, and PKD. And that urine paraproteins would not register as albumin. #8 Congenital Multiple Renal Cysts Looking back in his history, there were studies documenting PKD as I began visiting with him, however these were not mentioned on initial exams. Subsequent, it is apparent he does have polycystic kidney disease. There is no familial history of renal diseases nor disorders, and I suspect that his PKD likely explain some of his slowly progressive chronic kidney disease as well as his proteinuria. Very prolonged visit, over 90 minutes spent with the chart and the patient. Total time: 1 hour and 50 minutes Counseling Time: 1 hour Jose Luis Turk Jr., D.O. 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
== END 2023-06-13 08:32 | disposition home or self-care (01) ==
PROVIDERS: PCP Family Medicine; Visit Provider Family Medicine
DX: Z00.00 Encounter for general adult medical examination without abnormal findings (principal); E11.9 Type 2 diabetes mellitus without complications; I10 Essential (primary) hypertension; E78.5 Hyperlipidemia, unspecified; E55.9 Vitamin D deficiency, unspecified; N18.30 Chronic kidney disease, stage 3 unspecified; D47.2 Monoclonal gammopathy; Z13.6 Encounter for screening for cardiovascular disorders
CPT/HCPCS: 80053; 82607

== ENCOUNTER 2023-07-03 10:20 | Day surgery (SDC) | payer OTHER, SELFPAY ==
[2023-07-03] VITALS (7 sets, daily range): BP systolic 144–169; BP diastolic 69–81; PULSE 64–73; RESP 16–18; TEMP 36.8–36.9; O2SAT 98–100; BMI 28.1
--- OUTSIDE RECORDS SUMMARY | 2023-07-03 10:32 | XMS_ITS | Encounter Summary ---
Author Name Unknown Organization [facility] Address [address] [place] [address] Care Team Providers Care Correctional Supply Supervisor Name Role Phone Unavailable Primary Care Provider Unavailabl e Reason for Visit * Appointment Request (Routine) - Closed Specialty Diagnoses / Procedures Referred By Contac t Referred To Contact Nephrology and Hypertension Referral ID Status Reason Start Date Expiration Date Visits Re quested Visits Authorized [id number] Closed 03/08/2023 03/07/2024 1 1 Encounter Details Date Type Department Care Team (Latest Contact Info) Description 04/09/2023 9:00 AM QUILL SKINNER External Outreach Division of Nephrology and Hypertension in [place], [place] [address] [place] [address] Jose Luis Turk Jr., D.O. [address] [place] [phone] Chronic Kidney Disease (CKD), Stage 3b Glomerular [...] Comments Blood Pressure 138/70 04/09/2023 9:38 AM QUILL SKINNER Pulse 70 04/09/2023 9:38 AM QUILL SKINNER Temperature - - Respiratory Rate - - Oxygen Saturation - - Inhaled Oxygen Concentration - - Weight 78 kg (171 lb 15.3 oz) 04/09/2023 9:38 AM QUILL SKINNER Height 172.7 cm (5' 7.99) 04/09/2023 9:38 AM CS T Body Mass Index 26.15 04/09/2023 9:38 AM QUILL SKINNER documented in this encounter Progress Notes * Jose Luis Turk Jr., D.O. - 04/09/2023 9:00 AM CST Referring Provider: No primary care provider on file. SUBJECTIVE REASON FOR VISIT [facility] out reach CKD Clinic Follow-up regards a [...] 30 minutes Jose Luis Turk Jr., D.O. L SKINNER documented in this encounter Plan of Treatment [...]
--- OUTSIDE RECORDS SUMMARY | 2023-07-03 10:32 | XMS_ITS ---
Author Name Unknown Organization [facility] Address [address] [place] [address] Care Team Providers Care Street Light Inspector Name Role Phone Unavailable Unavailable Unavailable Surgery Details Not on file Complications Check Surgery Details section. Procedure Estimated Blood Loss Check Surgery Details section. Procedure Findings Check Surgery Details section. Procedure Specimens Taken Check Surgery Details section.
--- OUTSIDE RECORDS SUMMARY | 2023-07-03 10:32 | XMS_ITS | Continuity of Care Document ---
Author Name Unknown Organization [facility] Address [address] [address] [place] [address] Phone Care Team Providers Care Press Cutter Name Role Phone Nazia Hernandez CRNA Unavailable Unavailable Allergies, Adverse Reactions, Alerts Substance Reaction Status Criticality clindamycin Tongue swelling Active No Informati on Sulfa (Sulfonamide Antibiotics) Adverse reaction Activ e No Information Penicillins difficulty breathing Active No Info rmation Medications Medication Instructions Dosage Effective Dates (start - stop) Status Comments amlodipine 2.5 mg tablet take 1 tablet b y oral route 2 times every day 2.5 MG - Active hydrochlorothiazide 25 mg tablet take 1 tablet by oral route every day 25 MG - Active tamsulosin 0.4 mg capsule take 1 capsule by ORAL route every day 1/2 hour following the same meal each day 0.4 MG - Active metoprolol succinate ER 50 mg tablet,extended release 24 hr take 1 tablet by oral route every day 50 MG - Active rosuvastatin 10 mg tablet take 1 tablet by oral route every day 10 MG - Active glipizide ER 5 mg tablet, extended release 24 hr take 3 tablet by oral route every day with breakfast 15 MG - Active Vitamin D3 25 mcg (1,000 unit) capsule take 1 Tablet by Oral route every day 1 Tablet - Active aspirin 81 mg tablet,delayed release take 1 tablet by oral route every day 81 MG - Active Glucosamine 500 mg tablet take 2 Tablet by Oral route once 2 Tablet - Active PreserVision AREDS-2 250 mg-90 mg-40 mg-1 mg capsule Gurpreet-21-2021 - Active Herbal Medications/Supplements unknown - Active oxybutynin chloride ER 10 mg tablet,extended release 24 hr take 1 tablet by oral route every day 10 MG - Active metformin 500 mg Tab 1 tablet by mouth three times a day - Active lisinopril 5 mg Tab Take one tablet by mouth daily - Active omeprazole 20 mg Cap, Delayed Release Take one capsule by mouth daily - Active Zocor 40 mg Tab Take 1 tablet by mouth daily - No Longer Active Procedures Procedure Date Level Iv-surg Path Gross/micro 21 CRS Charges Level Iv-surg Path Gross/micro 16 CRS Charges Level Iv-surg Path Gross/micro 09 CRS Charges Advance Directives Directive Yes / No Effective Date File Name No Information Encounters Encounter Description Practice Location Reason(s) For Visit Diagnoses Date Provider Providers Copied on Encounter [facility], [address] [address], [place], [place], [id number], [place] tel:[phone] [facility] No Information 1 Mary Mandujano. [address] [facility] [address], [place], [id number], [place]. tel:[phone] Referring Provider: Jason Phoenix MD, [address], [place], [address] . tel:[phone] [facility], [address] [address], [place], [address], [place] tel:[phone] [facility] Benign colon polypPersonal history of colonic polypsEncounter for screening for malignant neoplasm of colonBenign neoplasm of cecumBenign neoplasm of cecumPersonal history of colonic polyps No Information Referring Provider: Referral Self, USE FOR SELF REFERRALS. [facility], [address] [address], [place], [id number], [place] tel:[phone] [facility] Colon polypEncounter for screening for malignant neoplasm of colonPersonal history of colonic polypsPolyp of colon Silverio-2 2-201 6 No Information Referring Provider: Referral Self, USE FOR SELF REFERRALS. [facility] [address] [address], [place], [id number], [place] tel:[phone] [place] [facility] Polyp-intes/rect /stom-unc BehPersonal History Colon PolypsRectal Polyp/Benign Sep-2 3200 9 No Information Family History Family Member Type Diagnosis Age At Onset Mother Problem (finding) Mother Problem (finding) malignant neop lasm of breast in first degree relative Father Problem (finding) Sister Problem (finding) Alive and well Mother Problem (finding) gallbladder disease Daughter Problem (finding) Alive and well Immunizations Vaccine Date Status Comments SARS-COV-2 (COVID-19) vaccin e, mRNA, spike protein, LNP, preservative free, 30 mcg/0.3mL dose administered Note: [facility] bi-direct ional interface ; Source: Other Registry SARS-COV-2 (COVID-19) vaccin e, mRNA, spike protein, LNP, preservative free, 30 mcg/0.3mL dose administered Note: [facility] bi-direct ional interface ; Source: Other Registry influenza, high dose seasona l, preservative-free administered Note: [facility] bi-direct ional interface ; Source: Other Registry tetanus and diphtheria toxoi ds, adsorbed, preservative free, for adult use (2 Lf of tetanus toxoid and 2 Lf of diphtheria toxoid) administered Note: [facility] bi-direct ional interface ; Source: Other Registry zoster vaccine recombinant administered N ote: [facility] bi-directional interface ; Source: Other Registry influenza, high dose seasona l, preservative-free administered Note: [facility] bi-direct ional interface ; Source: Other Registry zoster vaccine recombinant administered N ote: [facility] bi-directional interface ; Source: Other Registry Pneumovax 23 administered Note: [facility] bi-d irectional interface ; Source: Other Registry influenza, high dose seasona l, preservative-free administered Note: [facility] bi-direct ional interface ; Source: Other Registry Pneumovax 23 administered Note: [facility] bi-d irectional interface ; Source: Other Registry Prevnar 13 administered Note: [facility] bi-d irectional interface ; Source: Other Registry influenza, high dose seasona l, preservative-free administered Note: [facility] bi-direct ional interface ; Source: Other Registry tetanus toxoid, reduced diphtheria toxoid, and acellular pertussis vaccine, adsorbed administered Note: [facility] b i-directional interface ; Source: Other Registry Payers Payer name Insurance type Covered democrat ID Alvarez torres(s) [facility] Medicare Advantage 16 [id number] Social History Type Description Quantity Date Captured Comments Sex Male Smoking Status No Information Chief Complaint And Reason For Visit No Information Reason For Referral Reason For Referral No Information History Of Present Illness Encounter Date Complaint History Of Prese nt Illness No Information Functional Status Date Functional Assessmen t No Information Instructions Date Instruction Additional Infor adam Colon Cancer Prevention Related to Benign colon polyp Colon Polyps Related to Benig n colon polyp Colon Polyps Related to Colon polyp Colon Cancer Prevention Related to Colon polyp Assessments Type Assessment Date No Information Patient Care Teams Name Effective Dates (start - stop) Status Members No Information
--- OUTSIDE RECORDS SUMMARY | 2023-07-03 10:32 | XMS_ITS | Clinical Summary ---
Author Name Unknown Organization [facility] Address [address] [place] [address] Care Team Providers Care Acid Bleacher Name Role Phone Unavailable Primary Care Provider Unavailabl e Source Comments Patient records contain information from all sites at [facility]. For routine questions regarding patient records, call [phone] during business hours, M-F 8:00 AM - 5:00 PM Central Time. Record requests for emergency care only can be directed to [phone] at any time.[facility] Medications Medication Sig Dispensed Refills Start [...] Department Care Team Description 04/09/2023 9:00 AM BALANCE WHEEL FACER External Outreach Division of Nephrology and Hypertension in [place], [place] [address] [place] [address] Jose Luis Turk Jr., D.O. Chronic Kidney [...] Comments Blood Pressure 138/70 04/09/2023 9:38 AM BALANCE WHEEL FACER Pulse 70 04/09/2023 9:38 AM BALANCE WHEEL FACER Temperature 36.2 ??C (97.2 ??F) 03/06/2022 9:25 AM CD T Respiratory Rate - - Oxygen Saturation - - Inhaled Oxygen Concentration - - Weight 78 kg (171 lb 15.3 oz) 04/09/2023 9:38 AM BALANCE WHEEL FACER Height 172.7 cm (5' 7.99) 04/09/2023 9:38 AM CS T Body Mass Index 26.15 04/09/2023 9:38 AM BALANCE WHEEL FACER Plan of Treatment Health Maintenance Due Date Last Done Comments Creatinine Level (Kidney Fun ction Test) 1945 Diabetic Office Visit with F oot Exam 1945 Hemoglobin A1C 1945 Hepatitis C Screening 1945 Sodium Level 1945 Urine Albumin 1945 Hepatitis B Vaccines (1 of 3 - Risk 3-dose series) 2005 Potassium Level 09/25/2022 09/25/2021 Dilated Eye Exam 04/04/2023 04/04/2022, 05/03/2020 Depression Screening (Annual PHQ-2) 06/03/2023 Fall Risk Screen (Annual) 06/03/2023 Office Visit for Blood Press ure Check / Re-check 04/09/2024 04/09/2023 DTaP,Tdap,and Td Vaccines (4 - Td or Tdap) 12/25/2028 12/25/2018, 12/25/2018, 12/21/2008 Pneumococcal vaccine (65+ years) Completed 03/10/2018, 05/09/2017, 02/10/2015 Zoster Vaccines Completed 08/13/2018, 03/10/2018 COVID-19 Vaccine Completed 05/03/2023, 09/2021, 09/12/2021, Additional history exists Influenza Vaccine Completed 05/03/2023, , 04/29/2021, Additional history exists
--- OUTSIDE RECORDS SUMMARY | 2023-07-03 10:32 | XMS_ITS | Encounter Summary ---
Author Name Unknown Organization [facility] Address [address] [place] [address] Care Team Providers Care Supervisor Sewing Department Name Role Phone Unavailable Primary Care Provider Unavailabl e Reason for Visit * Appointment Request (Routine) - Closed Specialty Diagnoses / Procedures Referred By Contac t Referred To Contact Nephrology and Hypertension Referral ID Status Reason Start Date Expiration Date Visits Re quested Visits Authorized [id number] Closed 01/11/2023 01/11/2024 1 1 Encounter Details Date Type Department Care Team (Latest Contact Info) Description 01/21/2023 3:30 PM CDT External Outreach Division of Nephrology and Hypertension in [place], [place] [address] [place] [address] Jose Luis Turk Jr., D.O. [address] [place] [phone] Chronic Kidney Disease (CKD), Stage 3b Glomerular [...] provider on file. SUBJECTIVE REASON FOR VISIT [place] [facility] out reach [facility] Follow-up regards multi [...] has not changed. The paraprotein evaluations at [facility] are sent to [facility] labs. These send out labs are often [...] is not formally read. We reviewed this ycco-lj-pbhz today, we do not see any hypermetabolic [...]
--- OUTSIDE RECORDS SUMMARY | 2023-07-03 10:32 | XMS_ITS | Referral Summary ---
Author Name Unknown Organization [facility] Address [address] [place] [address] Care Team Providers Care Service Technician Name Role Phone Unavailable Primary Care Provider Unavailabl e Source Comments Patient records contain information from all sites at [facility]. For routine questions regarding patient records, call [phone] during business hours, M-F 8:00 AM - 5:00 PM Central Time. Record requests for emergency care only can be directed to [phone] at any time.[facility] Encounters Date Type Department Care Team Description 04/09/2023 9:00 AM CUSTOMER BUSINESS MANAGER External Outreach Division of Nephrology and Hypertension in [place], [place] [address] [place] [address] Jose Luis Turk Jr., D.O. Chronic Kidney [...] Comments Blood Pressure 138/70 04/09/2023 9:38 AM CUSTOMER BUSINESS MANAGER Pulse 70 04/09/2023 9:38 AM CUSTOMER BUSINESS MANAGER Temperature 36.2 ??C (97.2 ??F) 03/06/2022 9:25 AM CD T Respiratory Rate - - Oxygen Saturation - - Inhaled Oxygen Concentration - - Weight 78 kg (171 lb 15.3 oz) 04/09/2023 9:38 AM CUSTOMER BUSINESS MANAGER Height 172.7 cm (5' 7.99) 04/09/2023 9:38 AM CS T Body Mass Index 26.15 04/09/2023 9:38 AM CUSTOMER BUSINESS MANAGER Plan of Treatment Not on file
--- OUTSIDE RECORDS SUMMARY | 2023-07-03 10:33 | XMS_ITS | Encounter Summary ---
Author Name Unknown Organization [facility] Address [address] [place] [address] Care Team Providers Care Re Recording Mixer Name Role Phone Anastacio Mayberry MD Primary Care Provider [phone] Reason for Visit * Reason Comments Problem Focused Exam UR broken tooth/los t filling? Encounter Details Date Type Department Care Team Description 11/12/2022 9:40 AM CDT Office Visit [facility] [id number] [place] [phone] Rachel Veloz [place] [address] [place] [address] Problem Focused Exam (UR broken tooth/lost filling?) [...] tooth/lost filling?) Chief Complaint: Broken tooth, Lost Temple My UR tooth broke about a week [...] None used, procedure was minimally invasive. SEDATIVE SPIRITISM, #5: Prepared with complete caries removal and [...] caries lesions involving dentin Retained tooth root [id number] Routine 11/12/2022 9:40 AM C DT Extensive [...] root documented in this encounter Care Teams Re Recording Mixer Relationship Specialty Start Date End Date Anastacio Mayberry MD [address] [place] [address] PCP - General Family Practice 09/23/17 documented as of this encounter
--- OUTSIDE RECORDS SUMMARY | 2023-07-03 10:33 | XMS_ITS | Encounter Summary ---
Author Name Unknown Organization [facility] Address [address] [place] [address] Care Team Providers Care Proposal Director Name Role Phone Unavailable Primary Care Provider Unavailabl e Reason for Visit * Appointment Request (Routine) - Closed Specialty Diagnoses / Procedures Referred By Contac t Referred To Contact Nephrology and Hypertension Referral ID Status Reason Start Date Expiration Date Visits Re quested Visits Authorized [id number] Closed 08/09/2022 08/09/2023 1 Encounter Details Date Type Department Care Team (Latest Contact Info) Description 09/18/2022 8:30 AM CDT External Outreach Division of Nephrology and Hypertension in [place], [place] [address] [place] [address] Jose Luis Turk Jr., D.O. [address] [place] [address] Chronic Kidney Disease (CKD), Stage 3b Glomerular [...] Provider Dr. Nash SUBJECTIVE REASON FOR VISIT [place] out reach CKD Clinic Follow-up regards proteinuria, [...]
--- OUTSIDE RECORDS SUMMARY | 2023-07-03 10:33 | XMS_ITS | Clinical Summary ---
Author Name Unknown Organization [facility] Address [place], [place] [address] Care Team Providers Care Auto Battery Builder Name Role Phone Pcp, No Primary Care [...] 0 11/19/2011 Active GLUCOSAMINE/MSM/CHONDR OITIN A (GLUCOSAMINE [id number]) 500-83-400 mg tab Take 1 Tablet by mouth once daily. 0 08/09/2014 Active vit C,J-Nc-splzz-lutein-ze axan capsule Take 1 capsule by mouth [...] Department Care Team Description 05/17/2023 8:20 AM GENERAL MERCHANDISE MANAGER Office Visit [facility] [address] [place] [address] Serafin Yeager, OD Eye Exam (DM CEE) [...] Preferences, Provider to review later Care Teams Auto Battery Builder Relationship Specialty Start Date End Date Pcp, No . PCP - General 09/20/21
--- OUTSIDE RECORDS SUMMARY | 2023-07-03 10:33 | XMS_ITS | Encounter Summary ---
Author Name Unknown Organization [facility] Address [address] [place] [address] Care Team Providers Care Web Production Designer Name Role Phone Anastacio Mayberry MD Primary Care Provider [phone] Reason for Visit * Reason Comments Broken Tooth Broken Advent Encounter Details Date Type Department Care Team Description 11/05/2022 Telephone [facility] [address] [place], [place] [phone] Rachel Veloz DDS [address] [place], [place] [phone] Broken Tooth; Broken Advent Social History Tobacco Use Types Packs/Day Years [...] on filedocumented in this encounter Care Teams Web Production Designer Relationship Specialty Start Date End Date Anastacio Mayberry MD [address] [place] [address] PCP - General Family Practice 09/23/17 documented as of this encounter
--- OUTSIDE RECORDS SUMMARY | 2023-07-03 10:33 | XMS_ITS | Clinical Summary ---
Author Name Unknown Organization [facility] Address [address], [place] [address] Care Team Providers Care Gas Blender Name Role Phone Anastacio Mayberry MD Primary Care Provider [phone] Source Comments You are receiving this document as you are listed as the primary care provider,follow-up provider, or the patient has been referred to you for consultation.This is in compliance with the Medicare and[facility] EHR Incentive Program,which states Providers who transition their patient to another setting of careor provider of care or refers their patient to another provider of care shouldprovide summary care record for each transition of care or referral. [employer] Allergies Active Allergy Reactions Criticality Noted Date [...] age to complete this topic Care Teams Gas Blender Relationship Specialty Start Date End Date Anastacio Mayberry MD [address] [facility] [place] [id number] PCP - General Family Practice 09/23/17
[2023-07-03] MEDS: ETHYL CHLORIDE 1 APPLICATION 1 APPLIC TOPICAL (10:40)
[2023-07-03] MEDS: LIDOCAINE 2%-EPI 1:200,000 20 ML INFILTRATI (10:40)
[2023-07-03] MEDS: BUPIVACAINE 0.5% 30 ML INJECTION (10:40)
--- NOTE | 2023-07-04 08:31 | PM.ORPRC ---
Procedure Note Date of procedure: 07/03/2023 Procedure: PREOPERATIVE DIAGNOSIS: 1. Left carpal tunnel syndrome 2. Left small trigger finger-flexor tenosynovitis POSTOPERATIVE DIAGNOSIS: 1. Left carpal tunnel syndrome 2. Left small trigger finger-flexor tenosynovitis PROCEDURE: 1. Left open carpal tunnel release 2. Left small trigger finger release, open SURGEON: Evert Frye MD. MULTIMEDIA AUTHORING SPECIALIST: KRISTIE Rodriguez ANESTHESIA: Local anesthetic (50:50 mixture of 2% lidocaine with epi and 0.5% marcaine plain) - 10ml total IMPLANTS: None EBL: 2 mL TOURNIQUET: None COMPLICATIONS: None evident INDICATIONS: The patient is a pleasant 77-year-old male who has experienced left hand numbess/tingling affecting the radial 3.5 digits for multiple months. It has progressively gotten worse. In addition, he has experienced left small finger catching/triggering. Nonoperative management has been tried and failed, and therefore surgery was recommended. DESCRIPTION OF PROCEDURE: Following a thorough discussion of risks, benefits, and alternatives consent was obtained and the operative extremity was marked. The patient was brought to the operating room and placed supine on the operating table. Local anesthesia induction was undertaken in preop holding. No antibiotics were administered as this was planned to be a local case only. Proper time-out was performed identifying proper patient, site, and procedure. The operative extremity was prepped and draped in the appropriate sterile fashion using ChloraPrep. An incision was made in line with the radial border of the ring finger beginning 1 cm distal to the distal wrist crease and progressing for another 2.5cm distal. Caution was taken to stay proximal to Box's cardinal line. Sharp incision through the skin, subcutaneous tissue, and palmar fascia was performed. The thenar musculature was bluntly elevated off the transverse carpal ligament. The ligament was directly visualized, and divided sharply with a 15 blade. This was released from its most proximal to the most distal extent. Metzenbaum scissor was also utilized to release the fascia extension proximally. We confirmed complete release of the transverse carpal ligament. We then proceeded to the left small trigger finger release. An incision was made on the palmar surface of the hand overlying the MCP joint region of the appropriate digit(s) respecting the palmar creases being cautious not to cross these perpendicularly. Sharp incision through the skin, and blunt dissection through subcutaneous tissue allowing protection of crossing neurologic structures. The A1 hanna was visualized directly. It was incised sharply with a 15 blade. It was released completely from its distal to proximal extent under direct visualization. The tendon was inspected and found to be mildly striated consistent with some friction. Otherwise, it was intact. The tendon was removed out of the wound, and further inspected. The patient was asked to manually flex and extend the digits and showed no further catching. The catching which was visualized after tourniquet inflation, was no longer evident with reproduction of a manual fist and relaxation. Closure was performed with 4-O nylon in interrupted fashion. Soft dressings were applied, and the patient was transferred to the recovery room in stable condition. PLAN: 1. Encourage elevation of the operative extremity. 2. Range of motion of the fingers and hand/wrist as tolerated. 3. Ibuprofen/acetaminophen and/or oxycodone as needed for pain control. 4. Follow up with PA visit or nurse visit in 12-16 days for wound check and suture removal.
== END 2023-07-03 14:07 | disposition home or self-care (01) ==
PROVIDERS: PCP Family Medicine; Visit Provider Orthopaedic Surgery Sports Medicine
PROC: (CPT 64721; principal; 2023-07-03 12:45)
DX: G56.02 Carpal tunnel syndrome, left upper limb (principal); M65.352 Trigger finger, left little finger; M65.842 Other synovitis and tenosynovitis, left hand
CPT/HCPCS: 64721; 26055; J0665

== ENCOUNTER 2023-10-01 07:32 | Outpatient (CLI) | payer OTHER, SELFPAY ==
--- OUTSIDE RECORDS SUMMARY | 2023-10-04 11:20 | XMS_ITS | Referral Summary ---
Author Name Unknown Organization [facility] Address [address] [place] [address] Care Team Providers Care Integrated Logistics Operations Manager Name Role Phone Unavailable Primary Care Provider Unavailabl e Source Comments Patient records contain information from all sites at [facility]. For routine questions regarding patient records, call [phone] during business hours, M-F 8:00 AM - 5:00 PM Central Time. Record requests for emergency care only can be directed to [phone] at any time.[facility] Medications Medication Sig Dispensed Refills Start Date End Date Status amLODIPine (NORVASC) 2.5 mg tablet Take 2.5 mg by mouth. 07/14/2020 Active cholecalciferol (VITAMIN D3) 25 mcg (1,000 Unit) capsule Take 1 tablet by mouth daily. 12/21/2020 Active glipiZIDE (GLUCOTROL) 5 mg tablet Take 5 mg by mouth. Active hydroCHLOROthiazide (HYDRODIURIL) 25 mg tablet Take 25 mg by mouth. 03/11/2021 Active lisinopriL (PRINIVIL,ZESTRIL) 40 mg tablet 05/03/2021 Active metFORMIN (GLUCOPHAGE) 500 mg tablet Take 500-1,000 mg by mouth. 11/19/2011 Active omeprazole (PriLOSEC) [address] capsule Take 20 mg by mouth daily. 11/19/2011 Active rosuvastatin (CRESTOR) 10 mg tablet Take 10 mg by mouth. 08/02/2020 Active tamsulosin (FLOMAX) 0.4 mg 24 hr capsule 2 (two) times a day. Active Active Problems Problem Noted Date Diagnosed [...] Comments Blood Pressure 138/70 04/09/2023 9:38 AM CLOTH TRIMMER HAND Pulse 70 04/09/2023 9:38 AM CLOTH TRIMMER HAND Temperature 36.2 ??C (97.2 ??F) 03/06/2022 9:25 AM CD T Respiratory Rate - - Oxygen Saturation - - Inhaled Oxygen Concentration - - Weight 78 kg (171 lb 15.3 oz) 04/09/2023 9:38 AM CLOTH TRIMMER HAND Height 172.7 cm (5' 7.99) 04/09/2023 9:38 AM CS T Body Mass Index 26.15 04/09/2023 9:38 AM CLOTH TRIMMER HAND Plan of Treatment Not on file Procedures Procedure Name Priority Date/Time Associated Diagnosis Comments EXTI POTASSIUM, S/P Routine 09/25/2021 8 :28 AM CDT from Last 3 Months or Most Recently Relevant to Health Maintenance
--- OUTSIDE RECORDS SUMMARY | 2023-10-04 11:20 | XMS_ITS | Clinical Summary ---
Author Name Unknown Organization [facility] Address [place], [place] [address] Care Team Providers Care Associate Doctor Name Role Phone Pcp, No Primary Care [...] 0 11/19/2011 Active GLUCOSAMINE/MSM/CHONDR OITIN A (GLUCOSAMINE [id number]) 500-83-400 mg tab Take 1 Tablet by mouth once daily. 0 08/09/2014 Active vit C,Z-Ke-djesm-lutein-ze axan capsule Take 1 capsule by mouth [...] Take 5 mg by mouth once daily. 03/12/2021 Active cholecalciferol (VITAMIN D3) 1,000 unit capsule Take 1 Tablet by mouth once daily. 12/21/2020 Active hydroCHLOROthiazide (HCTZ) 25 mg tablet Take 25 mg by mouth once daily. 03/11/2021 Active lisinopriL (PRINIVIL; ZESTRIL) 40 mg tablet 05/03/2021 Act giovanna rosuvastatin (CRESTOR) 10 mg tablet Take 10 mg by mouth at bedtime. 04/22/2021 Active tamsulosin (FLOMAX) 0.4 mg capsule Twice A Day Active varenicline (CHANTIX) 1 mg tablet Take 1 mg by mouth. Active traMADoL (ULTRAM) 50 mg tablet Take [...] 08/09/2014 WOUND OPEN, HAND W/O COMPLICATION 09/18/1999 Immunizations Name Administration Dates Next Due Influenza, [...] 18+ 09/25/2022 09/25/2021 Influenza for age 65+ 02/02/2024 04/29/2021 , 04/26/2021, 03/27/2019, Additional history exists Tetanus booster 12/25/2028 12/25/2018, 12/02, 12/21/2008 Tdap Completed 12/21/2008 Pneumococcal series for age 65+ Completed 03/10/2018, 05/09/2017, 02/10/2015 Zoster (shingles) series for age 50+ Completed 08/13/2018, 08/13/2018, 03/10/2018 COVID-19 vaccine series Completed 05/03/20, 03/06/2022, 09/12/2021, Additional history exists Advance Directives * Full Code (Latest Code Status on File) Date Activated Date Inactivated Comments 09/29/2021 8:51 AM 09/30/2021 4:19 PM Question Answer Comments Code Status Discussion: Unable to Assess Preferences, Provider to review later Care Teams Associate Doctor Relationship Specialty Start Date End Date Pcp, No . PCP - General 09/20/21
--- OUTSIDE RECORDS SUMMARY | 2023-10-04 11:20 | XMS_ITS ---
Author Name Unknown Organization [facility] Address [address] [place] [address] Care Team Providers Care Union Carpenter Name Role Phone Unavailable Unavailable Unavailable Surgery Details Not on file Complications Check Surgery Details section. Procedure Estimated Blood Loss Check Surgery Details section. Procedure Findings Check Surgery Details section. Procedure Specimens Taken Check Surgery Details section.
--- OUTSIDE RECORDS SUMMARY | 2023-10-04 11:20 | XMS_ITS | Clinical Summary ---
Author Name Unknown Organization [facility] Address [address], [place] [address] Care Team Providers Care Vehicle Dismantler Name Role Phone Anastacio Mayberry MD Primary Care Provider [phone] Source Comments You are receiving this document as you are listed as the primary care provider,follow-up provider, or the patient has been referred to you for consultation.This is in compliance with the Medicare and[place] Healthcare[employer] EHR Incentive Program,which states Providers who transition their patient to another setting of careor provider of care or refers their patient to another provider of care shouldprovide summary care record for each transition of care or referral. YOOSE Allergies Active Allergy Reactions Criticality Noted Date Comments Clindamycin Anaphylaxis,Hives,Angioedema High 2020 Penicillins Anaphylaxis,Hives,Angioedema High 2020 Sulfa Antibiotics Hives High 05/17/2017 Medications Medication Sig Dispensed Refills Start Date End Date Status glipiZIDE (GLUCOTROL) 5 MG tabletIndications:Ty pe 2 Diabetes Mellitus Take 5 mg by mouth two times a day before meals. Indications: Type 2 Diabetes Active metFORMIN (GLUCOPHAGE) 500 MG tabletIndications:Ty pe 2 Diabetes Mellitus Take 500 mg by mouth two times a day with meals. Indications: Type 2 Diabetes Active lisinopril (ZESTRIL) 20 MG tabletIndications:Hy pertension Take 40 mg by mouth daily. Indications: High Blood Pressure Disorder Active omeprazole (PRILOSEC-OTC) 20 MG tabletIndications:He artburn Take 20 mg by mouth daily. Indications: Heartburn Active oxybutynin (DITROPANXL) 10 MG 24 hour release tabletIndications:Ur inary Frequency,proteins in urine Take 10 mg by mouth daily. Indications: Frequent Urination, proteins in urine Active simvastatin (ZOCOR) 40 MG tablet Take 40 mg by mouth daily at bedtime. Active tamsulosin (FLOMAX) 0.4 MG CAPS capsule Take 0.4 mg by mouth daily. Active hydroCHLOROthiazide (ORETIC) 12.5 MG tabletIndications:Hy pertension Take 25 mg by mouth daily. Indications: High Blood Pressure Disorder Active metoprolol succinate (TOPROL XL) 25 MG 24 hour release tablet Take 25 mg by mouth daily. Active varenicline (CHANTIX) 1 MG tablet Take 1 mg by mouth two times a day. Take after eating with a full glass of water.NOTE:Dispense as maintenance for refills only. Active amLODIPine (NORVASC) 2.5 MG tablet Take 2.5 mg by mouth two times a day. 07/14/2020 Active omeprazole (PRILOSEC) 20 MG capsule Take 20 mg by mouth daily. 08/05/2020 Active rosuvastatin (CRESTOR) 10 MG tablet Take 10 mg by mouth daily at bedtime. at bedtime 08/02/2020 Active Active Problems No known active [...] 1945 Medicare Welcome Visit 1945 COVID-19 Vaccine (2022- season) 2023 08/13/2020, 07/23/2020 Influenza (#1) 2023 03/27/2019, 10/0 01/2018, 05/09/2017, [...] age to complete this topic Care Teams Vehicle Dismantler Relationship Specialty Start Date End Date Anastacio Mayberry MD [address] [place], [place] [id number] PCP - General Family Practice 09/23/17
--- OUTSIDE RECORDS SUMMARY | 2023-10-04 11:20 | XMS_ITS | Clinical Summary ---
Author Name Unknown Organization [facility] Address [address] [place] [address] Care Team Providers Care Chief Unit Forester Name Role Phone Unavailable Primary Care Provider Unavailabl e Source Comments Patient records contain information from all sites at [facility]. For routine questions regarding patient records, call [phone] during business hours, M-F 8:00 AM - 5:00 PM Central Time. Record requests for emergency care only can be directed to [phone] at any time.[facility] Medications Medication Sig Dispensed Refills Start [...] Comments Blood Pressure 138/70 04/09/2023 9:38 AM SENIOR SITE MANAGER Pulse 70 04/09/2023 9:38 AM SENIOR SITE MANAGER Temperature 36.2 ??C (97.2 ??F) 03/06/2022 9:25 AM CD T Respiratory Rate - - Oxygen Saturation - - Inhaled Oxygen Concentration - - Weight 78 kg (171 lb 15.3 oz) 04/09/2023 9:38 AM SENIOR SITE MANAGER Height 172.7 cm (5' 7.99) 04/09/2023 9:38 AM CS T Body Mass Index 26.15 04/09/2023 9:38 AM SENIOR SITE MANAGER Plan of Treatment Health Maintenance Due Date Last Done Comments Creatinine Level (Kidney Fun ction Test) 1945 Diabetic Office Visit with F oot Exam 1945 Hemoglobin A1C 1945 Hepatitis C Screening 1945 Sodium Level 1945 Urine Albumin 1945 Hepatitis B Vaccines (1 of 3 - Risk 3-dose series) 2005 Potassium Level 09/25/2022 09/25/2021 Depression Screening (Annual PHQ-2) 06/03/2023 Fall Risk Screen (Annual) 06/03/2023 COVID-19 Vaccine (2022-07 4 season) 2023 05/03/2023, 03/06/2022, 09/12/2021, Additional history exists Office Visit for Blood Press ure Check / Re-check 04/09/2024 04/09/2023 Dilated Eye Exam 05/17/2024 05/17/2023, 07/2021, 05/03/2020 DTaP,Tdap,and Td Vaccines (4 - Td or Tdap) 12/25/2028 12/25/2018, 12/25/2018, 12/21/2008 Pneumococcal vaccine (65+ years) Completed 03/10/2018, 05/09/2017, 02/10/2015 Zoster Vaccines Completed 08/13/2018, 03/10/2018 Influenza Vaccine Completed 05/03/2023, , 04/29/2021, Additional history exists Procedures Procedure Name Priority Date/Time Associated Diagnosis Comments EXTI POTASSIUM, S/P Routine 09/25/2021 8 :28 AM CDT from Last 3 Months or Most Recently Relevant to Health Maintenance
== END 2023-10-01 07:33 | disposition home or self-care (01) ==
LOC: NFLDREF 10-04 11:18
PROVIDERS: PCP Family Medicine; Referring Provider Family Medicine; Visit Provider Internal Medicine Nephrology
DX: E78.5 Hyperlipidemia, unspecified; Q61.3 Polycystic kidney, unspecified; R74.8 Abnormal levels of other serum enzymes; R80.9 Proteinuria, unspecified; E11.65 Type 2 diabetes mellitus with hyperglycemia; I12.9 Hypertensive chronic kidney disease with stage 1 through stage 4 chronic kidney disease, or unspecified chronic kidney disease; N18.32 Chronic kidney disease, stage 3b
CPT/HCPCS: 80061; 80069; 82043; 82570; 82728; 83520; 83540; 83550; 84165; 84450; 84460; 84550; 86140; 86334

== ENCOUNTER 2024-04-07 07:40 | Outpatient (CLI) | payer OTHER, SELFPAY ==
--- OUTSIDE RECORDS SUMMARY | 2024-04-09 11:01 | XMS_ITS | Clinical Summary ---
Author Organization [facility] Address [address], [place] [address] Care Team Providers Care Instrument Worker Name Role Phone Anastacio Mayberry MD Primary Care Provider [phone] Source Comments You are receiving this document as you are listed as the primary care provider,follow-up provider, or the patient has been referred to you for consultation.This is in compliance with the Medicare andMedicaid EHR Incentive Program,which states Providers who transition their patient to another setting of careor provider of care or refers their patient to another provider of care shouldprovide summary care record for each transition of care or referral. Casualing Allergies Active Allergy Reactions Criticality Noted Date [...] (Preventive Services) 1945 Medicare Welcome Visit 1945 RSV (1 - 1-dose 75+ series) 2020 COVID-19 Vaccine (2023- season) 2024 08/13/2020, 07/23/2020 Influenza (#1) 2024 03/27/2019, 10/0 01/2018, 05/09/2017, Additional history exists [...] on patient's age to complete this topic RSV Aged Out No longer eligi ble based on patient's age to complete this topic MCV4 Aged Out No longer eligi ble based on patient's age to complete this topic Care Teams Instrument Worker Relationship Specialty Start Date End Date Anastacio Mayberry MD [address], [place] [id number] PCP - General Family Practice 09/23/17
--- OUTSIDE RECORDS SUMMARY | 2024-04-09 11:01 | XMS_ITS | Clinical Summary ---
Author Organization [facility] Address [place], [place] [address] Care Team Providers Care Party Bus Driver Name Role Phone Pcp, No Primary Care [...] 0 11/19/2011 Active GLUCOSAMINE/MSM/CHONDR OITIN A (GLUCOSAMINE [id number]) 500-83-400 mg tab Take 1 Tablet by mouth once daily. 0 08/09/2014 Active vit C,T-Lv-nvoji-lutein-ze axan capsule Take 1 capsule by mouth [...] 11/05/1963 Medicare Wellness for age 65+ 2010 RSV vaccine for adults or (1 - 1-dose 75+ series) 2020 BMI (ht and wt on same day) for age 18+ 09/25/2022 09/25/2021 COVID-19 vaccine series ( season) 2024 05/03/2023, 03/06/2022, 09/12/2021, Additional history exists Influenza for age 65+ 02/02/2024 04/29/2021 , 04/26/2021, 03/27/2019, Additional history exists Tetanus booster 12/25/2028 12/25/2018, 12/02, 12/21/2008 Tdap Completed 12/21/2008 Pneumococcal series for age 65+ Completed 03/10/2018, 05/09/2017, 02/10/2015 Zoster (shingles) series for age 50+ Completed 08/13/2018, 08/13/2018, 03/10/2018 Advance Directives * Full Code (Latest Code Status on File) Date Activated Date Inactivated Comments 09/29/2021 8:51 AM 09/30/2021 4:19 PM Question Answer Comments Code Status Discussion: Unable to Assess Preferences, Provider to review later Care Teams Party Bus Driver Relationship Specialty Start Date End Date Pcp, No . PCP - General 09/20/21
== END 2024-04-07 07:41 | disposition home or self-care (01) ==
LOC: NFLDREF 04-09 10:58
PROVIDERS: PCP Family Medicine; Referring Provider Family Medicine; Visit Provider Internal Medicine Nephrology
DX: N18.30 Chronic kidney disease, stage 3 unspecified (principal); I10 Essential (primary) hypertension; E11.9 Type 2 diabetes mellitus without complications; D47.2 Monoclonal gammopathy; E55.9 Vitamin D deficiency, unspecified; N40.0 Benign prostatic hyperplasia without lower urinary tract symptoms
CPT/HCPCS: 80061; 80069; 82043; 82570; 82784; 83520; 83970; 84155; 84165; 84450; 84460; 84550; 86140; 86334

== ENCOUNTER 2024-04-09 09:31 | Outpatient (CLI) | payer OTHER, SELFPAY ==
--- OUTSIDE RECORDS SUMMARY | 2024-04-17 08:48 | XMS_ITS | Clinical Summary ---
Author Organization [facility] Address [place], [place] [address] Care Team Providers Care Tool Grinder Set Up Operator Gear Name Role Phone Pcp, No Primary Care [...] 0 11/19/2011 Active GLUCOSAMINE/MSM/CHONDR OITIN A (GLUCOSAMINE [id number]) 500-83-400 mg tab Take 1 Tablet by mouth once daily. 0 08/09/2014 Active vit C,W-Pp-vbvyg-lutein-ze axan capsule Take 1 capsule by mouth [...] Preferences, Provider to review later Care Teams Tool Grinder Set Up Operator Gear Relationship Specialty Start Date End Date Pcp, No . PCP - General 09/20/21
--- OUTSIDE RECORDS SUMMARY | 2024-04-17 08:48 | XMS_ITS | Clinical Summary ---
Author Organization [facility] Address [address], [place] [address] Care Team Providers Care Meat Specialist Name Role Phone Anastacio Mayberry MD Primary Care Provider [phone] Source Comments You are receiving this document [...] for each transition of care or referral. Aupix Allergies Active Allergy Reactions Criticality Noted Date [...] age to complete this topic Care Teams Meat Specialist Relationship Specialty Start Date End Date Anastacio Mayberry MD [address] [place], [place] [address] PCP - General Family Practice 09/23/17
== END 2024-04-09 09:32 | disposition home or self-care (01) ==
LOC: NFLDREF 04-17 08:46
PROVIDERS: PCP Family Medicine; Referring Provider Family Medicine; Visit Provider Internal Medicine Nephrology
DX: D47.2 Monoclonal gammopathy; E11.22 Type 2 diabetes mellitus with diabetic chronic kidney disease; I12.9 Hypertensive chronic kidney disease with stage 1 through stage 4 chronic kidney disease, or unspecified chronic kidney disease; N18.32 Chronic kidney disease, stage 3b
CPT/HCPCS: 82340; 82436; 82507; 83735; 83945; 83986; 84105; 84133; 84300; 84392; 84560

== ENCOUNTER 2024-05-22 08:40 | Outpatient (CLI) | payer OTHER, SELFPAY ==
--- NOTE | 2024-05-22 09:00 | CRLHL7_ITS ---
For Patients: As a result of the Century Cures Act, medical imaging exams and procedure reports are released immediately into your electronic medical record. You may view this report before your referring provider. If you have questions, please contact your health care provider. Indication: Current smoker, lung cancer screening Technique: Noncontrast low-dose CT of the chest with multiplanar reformats. Comparison: CT chest performed 05/20/2023 Findings: Lungs: No consolidation. No effusion. No pneumothorax. Few scattered tiny nodules measuring up to 2 millimeters are unchanged without new or enlarging nodules appreciated. Mediastinum: Calcified coronary arterial and aortic atherosclerosis. Lymph nodes: No gross lymphadenopathy. Upper abdomen: Multiple renal cysts of varying density, suboptimally evaluated but is ever to be grossly unchanged. Soft tissues: Unremarkable. Bones: Degenerative changes of the spine. Impression: No new or enlarging nodules are appreciated. Continued annual surveillance screening recommended (Lung-RADS 2). Please note that all CT scans at this facility use dose modulation, iterative reconstruction, and/or weight-based dosing when appropriate to reduce radiation dose to as low as reasonably achievable. Dictated by Kain Yoder MD @ 05/23/2024 9:01:37 PM (Electronically Signed)
== END 2024-05-22 08:41 | disposition home or self-care (01) ==
PROVIDERS: PCP Family Medicine; Visit Provider Family Medicine
DX: Z12.2 Encounter for screening for malignant neoplasm of respiratory organs (principal); F17.200 Nicotine dependence, unspecified, uncomplicated
CPT/HCPCS: 71271

== ENCOUNTER 2024-07-14 10:42 | Outpatient (CLI) | payer MEDICARE, SELFPAY | END 2024-07-14 10:43 | disposition home or self-care (01) | PROVIDERS: PCP Family Medicine; Visit Provider Family Medicine | DX: I10 Essential (primary) hypertension (principal); E78.5 Hyperlipidemia, unspecified; E11.22 Type 2 diabetes mellitus with diabetic chronic kidney disease; N18.32 Chronic kidney disease, stage 3b; E55.9 Vitamin D deficiency, unspecified; N40.0 Benign prostatic hyperplasia without lower urinary tract symptoms; Z12.5 Encounter for screening for malignant neoplasm of prostate | CPT/HCPCS: 80053; 80061; 82043; 82306; 82570; 82607; G0103 ==

== ENCOUNTER 2024-08-16 12:29 | Emergency (ER) | payer MEDICARE, SELFPAY ==
--- OUTSIDE RECORDS SUMMARY | 2024-08-16 12:31 | XMS_ITS | Clinical Summary ---
Author Organization [facility] Address [address], [place] [address] Care Team Providers Care Customer Care Manager Name Role Phone Anastacio Mayberry MD Primary Care Provider [phone] Source Comments You are receiving this document [...] for each transition of care or referral. Seeonic Allergies Active Allergy Reactions Criticality Noted Date Comments Clindamycin Anaphylaxis,Hives,Angioedema High 2020 Penicillins Anaphylaxis,Hives,Angioedema High 2020 Sulfa Antibiotics Hives High 05/17/2017 Medications glipiZIDE (GLUCOTROL) 5 MG tabletIndicatio ns:Type 2 Diabetes Mellitus Take 5 mg by mouth two times a day before meals. Indications: Type 2 Diabetes Active metFORMIN (GLUCOPHAGE) 500 MG tabletIndicatio ns:Type 2 Diabetes Mellitus Take 500 mg by mouth two times a day with meals. Indications: Type 2 Diabetes Active lisinopril (ZESTRIL) 20 MG tabletIndicatio ns:Hypertension Take 40 mg by mouth daily. Indications: High Blood Pressure Disorder Active omeprazole (PRILOSEC-OTC) 20 MG tabletIndicatio ns:Heartburn Take 20 mg by mouth daily. Indications: Heartburn Active oxybutynin (DITROPANXL) 10 MG 24 hour release tabletIndicatio ns:Urinary Frequency,prote ins in urine Take 10 mg by mouth daily. Indications: Frequent Urination, proteins in urine Active simvastatin (ZOCOR) 40 MG tablet Take 40 mg by mouth daily at bedtime. Active tamsulosin (FLOMAX) 0.4 MG CAPS capsule Take 0.4 mg by mouth daily. Active hydroCHLOROthia zide (ORETIC) 12.5 MG tabletIndicatio ns:Hypertension Take 25 mg by mouth daily. Indications: High Blood Pressure Disorder Active metoprolol succinate (TOPROL XL) 25 MG 24 hour release tablet Take 25 mg by mouth daily. Active varenicline (CHANTIX) 1 MG tablet Take 1 mg by mouth two times a day. Take after eating with a full glass of water.NOTE:Dispe nse as maintenance for refills only. Active amLODIPine (NORVASC) 2.5 MG tablet Take 2.5 mg by mouth two times a day. 1 Active omeprazole (PRILOSEC) 20 MG capsule Take 20 mg by mouth daily. 1 Active rosuvastatin (CRESTOR) 10 MG tablet Take 10 mg by mouth daily at bedtime. at bedtime 1 Active Active Problems No known active problems Social History Tobacco Use Types Packs/Day Years Used Date Smoking Tobacco: Former Cigarettes 0.5 50 Smokeless Tobacco: Never Tobacco Cessation:Ready to Q uit: Yes Alcohol Use Standard Drinks/Week Comments Yes 2 (1 standard drink = 0.6 oz pur e alcohol) daily Sex and Gender Information Value Date Recorded Sex Assigned at Not on file Legal Sex Male 5:02 AM CDT Gender Identity Not on file Sexual Orientation [...] - 1-dose 75+ series) 2020 COVID-19 Vaccine ( season) 2024 08/13/2020, 07/23/2020 Influenza (#1) 2024 03/27/2019, 10/0 01/2018, 05/09/2017, Additional history exists DTaP/Tdap/Td (3 - Tdap) 12/25/2028 12/25/2018, 12/21 Pneumococcal 50+ Yrs Completed 03/10/2018, 05/09/2017, 02/10/2015 Zoster/Shingles Completed [...] on patient's age to complete this topic Meningococcal B Aged Out No longer el igible based on patient's age to complete this topic Insurance HP FREEDOM FREEDOM HP COMM SELF INSURED DENTAL HP PREVENTIVE FI DENTAL Care Teams Customer Care Manager Relationship Specialty Start Date End Date Anastacio Mayberry MD [address] [place] [address] PCP - General Family Practice 09/23/17
--- OUTSIDE RECORDS SUMMARY | 2024-08-16 12:31 | XMS_ITS | Clinical Summary ---
Author Organization [facility] Address [address] [place] [address] Care Team Providers Care Supervisor Electronic Coils Name Role Phone Pcp, No Primary Care Provider Unavailabl e Allergies Active Allergy Reactions Criticality Noted Date Comments Clindamycin Hives,Throat Swelling/Closing High 12/03/2017 Penicillins Hives 11/19/2011 Swollen tongue Resorcinol-Sulfur Other - Describe In Comment Field 11/19/2011 Not sure Medications metFORMIN (GLUCOPHAGE) 500 mg tablet Take 500-1,000 [...] daily with a meal. 0 11/19/2011 Active GLUCOSAMINE/MSM /CHONDROITIN A (GLUCOSAMINE [id number]) 500-83-400 mg tab Take 1 Tablet by mouth once daily. 0 08/09/2014 Active vit C,Y-Wz-prsic-valeriy tein-zeaxan capsule Take 1 capsule by mouth once daily. 0 12/03/2017 Active metoprolol succinate (TOPROL XL) 50 mg sustained-relea se tablet Take 1 tablet by mouth once daily. 0 12/03/2017 Active glipiZIDE extended-releas e (GLUCOTROL XL) 5 mg Extended-Releas e tablet Take 1 tablet by mouth once daily before a meal. 0 12/03/2017 Active oxybutynin XL (DITROPAN XL) 10 mg CR tablet 1 tablet once daily. 0 12/03/2017 Active amLODIPine (NORVASC) 2.5 mg tablet Take 5 mg by mouth once daily. 03/12/2021 Active cholecalciferol (VITAMIN D3) 1,000 unit capsule Take 1 Tablet by mouth once daily. 12/21/2020 Active hydroCHLOROthia zide (HCTZ) 25 mg tablet Take 25 mg by mouth once daily. 03/11/2021 Active lisinopriL (PRINIVIL; ZESTRIL) 40 mg tablet 05/03/2021 Active rosuvastatin (CRESTOR) 10 mg tablet Take [...] WOUND OPEN, HAND W/O COMPLICATION 09/18/1999 Immunizations Immunization Administration Dates Next Due Influenza, High-dose Inactivated [...] at Not on file Legal Sex Male 5:25 AM PIN MACHINE TENDER Gender Identity Not on file Sexual Orientation Not on file Obstetrics History Last Filed Vital Signs Vital Sign Reading Time Taken Comments Blood Pressure 131/63 09/30/2021 7:39 AM CDT Pulse 60 09/30/2021 7:39 AM CDT Temperature 36.7 C (98.1 F) 09/30/2021 7:39 AM CDT Respiratory Rate 16 09/30/2021 7:39 AM CDT [...] 05/03/2023, 03/06/2022, 09/12/2021, Additional history exists Influenza Vaccine (#1) 2024 9, 03/10/2018, 05/09/2017, Additional history exists Tetanus booster 12/25/2028 12/25/2018, 12/02, 12/21/2008 Tdap Completed 12/21/2008 Pneumococcal series for age 50+ Completed 03/10/2018, 05/09/2017, 02/10/2015 Zoster (shingles) series for age 50+ Completed 08/13/2018, 08/13/2018, 03/10/2018 Insurance MEDICARE ADVANTAGE [place] [id number] MEDICARE PART A HB ONLY Advance Directives * Full Code (Latest Code Status on File) Date Activated Date Inactivated Comments 09/29/2021 8:51 AM 09/30/2021 4:19 PM Question Answer Comments Code Status Discussion: Unable to Assess Preferences, Provider to review later Care Teams Supervisor Electronic Coils Relationship Specialty Start Date End Date Pcp, No . PCP - General 09/20/21
--- OUTSIDE RECORDS SUMMARY | 2024-08-16 12:31 | XMS_ITS | Encounter Summary ---
Author Organization [facility] Address [address] [place] [address] Care Team Providers Care Semiconductor Wafers Etcher Stripper Name Role Phone Unavailable Primary Care Provider Unavailabl e Reason for Referral * Outpatient (Routine) - Authorized Specialty Diagnoses / Procedures Referred By Contac t Referred To Contact Nephrology and Hypertension Jose Luis Turk Jr., D.O. [address] [place] [phone] Phone: tel: fax: [facility] Referral ID Status Reason Start Date Expiration Date V isits Requested Visits Authorized [id number] Authorized 07/03/2024 01/02/2026 1 1 CEMENT AND PAINT MAKER Encounter Details Date Type Department Care Team (Late st Contact Info) Description 07/03/2024 Orders Only Division of Nephrology and Hypertension in [place], [place] [address] [place] [phone] Jose Luis Turk Jr., D.OMartine [address] [place] [phone] Chronic Kidney Disease (CKD), Stage 3b Glomerular Filtration Rate (GFR) 30 To 44 (HCC) (Primary Dx); Hypertensive Chronic Kidney Disease With Stage 1 Through Stage 4 Chronic Kidney Disease, Or Unspecified Chronic Kidney Disease Social History Tobacco Use Types Packs/Day Years Used Date Smoking Tobacco: Never Assessed Nutrition Answer Date Recorded Nutrition: EVOO Fat Source 13 12/28 Nutrition: Servings of Fruits/Vegetables per Day Not on file 12/29/2019 Dental Answer Date Recorded Dental: Regular Dentist Unknown 08/12/19 21 Sex and Gender Information Value Date Recorded Sex Assigned at Not on file Legal Sex Male 11:35 AM CDT Gender Identity Not on file Sexual Orientation Not on file documented as of this encounter Plan of Treatment Scheduled Referrals Name Type Priority Associated Diagnoses Order Schedule Nephrology nurse visit (clinic) Outpatient Referral Routine Expected: 07/03/2024 (Approximate), Expires: 09/30/2025 documented as of this encounter Visit Diagnoses Diagnosis Chronic Kidney Disease (CKD), Stage 3b Glomerular Filtration Rate (GFR) 30 To 44 (HCC)- Primary Hypertensive Chronic Kidney Disease With Stage 1 Through Stage 4 Chronic Kidney Disease, Or Unspecified Chronic Kidney Disease documented in this encounter
--- OUTSIDE RECORDS SUMMARY | 2024-08-16 12:31 | XMS_ITS | Encounter Summary ---
Author Organization [facility] Address [address] [place] [id number] Care Team Providers Care Agent Name Role Phone Unavailable Primary Care Provider Unavailabl e Reason for Visit * Reason Onset Date Comments Blood Pressure Check 06/01/2024 Encounter Details Date Type Department Care Team (Latest Contact Info) Description 06/01/2024 Clinical Communication Division of Nephrology and Hypertension in [place], [place] [address] [place] [address] Jose Luis Turk Jr., D.O. [address] [place] [address] Blood Pressure Check Social History Tobacco Use Types Packs/Day Years [...] on file documented as of this encounter Miscellaneous Notes * Addendum Note - Charlotte Sosa M.S.N., R.N. - 07/02/2024 2:02 PM MECHANICS SUPERVISOR Addended by: CHARLOTTE SOSA on: 07/02/2024 02:02 PM Modules accepted: Orders ANICS SUPERVISOR * Telephone Encounter - Jatinder Greco R.NMartine - 06/15/2024 10:15 AM MECHANICS SUPERVISOR SUBJECTIVE CHIEF COMPLAINT / REASON FOR CALL Blood Pressure Check Information Discussed Followed up with patient regarding Dr. Turk's recommendation to keep medications as patient is taking them, and to recheck in about 1 month (now about end of June,). Patient notes his home blood pressures since 06/01 have ranged 137-149 systolic over 5 checks. He has no concerns at thistime. He states he will call back with his readings if they get higher again, otherwise does not plan to call sharing home blood pressure readings. He is happy to share home trends if we want to callhim for follow up- asking Dr. Turk his preference in routing. Per Dr. Turk note 04/14/2024,goal blood pressure <140/90, preferably in 130s systolic. PLAN Disposition/Recommendation: self-care is appropriate at this time, patient encouraged to call back with questions Information/Education: patient/caller able to teach back Caller agreeable to plan of care: yes The following references were used: nursing clinical judgement ANICS SUPERVISOR * Telephone Encounter - Jen Jenkins R.N. - 06/05/2024 8:51 AM MECHANICS SUPERVISOR SUBJECTIVE CHIEF COMPLAINT / REASON FOR CALL Blood Pressure Check ASSESSMENT Primary Champagne Maker: Dr. Turk Diagnosis: CKD secondary to diabetes, hypertension Last visit: 04/14/2024 Current Medication Regimen: Amlodipine 7.5 mg daily Lisinopril 40 mg daily Hydrochlorothiazide 25 mg daily Tamsulosin 0.4 mg twice daily Patient reports bilateral lower extremity swelling in ankles and feet occurred after the increase in Amlodipine from 5 mg to 7.5 mg. On 05/29/24, patient reduced dose to down to 5 mg and swelling resolved. He does take the medication at bedtime. Reported Blood Pressure readings: 05/19/24: 142/72, pulse 69 05/22/24: 140/65, pulse 66 05/24/24: 148/85, pulse 67 05/28/24: 152/71, pulse 63 05/29/24: 152/69, pulse 64 05/30/24: 163/80, pulse 72 (bobbin cleaner hand before meds) 05/30/24: 140/63. pulse 70 (1 hour later) 05/31/24: 120/63, pulse 79 06/01/24: 137/66, pulse 59 PLAN Disposition/Recommendation: Patient advised to take blood pressure readings approximately at least an hour after morning medications, a large meal or caffeine intake. Sitting quietly/resting for 5 minutes. Patient to continue with Amlodipine 5 mg at bedtime. Communication sent to Dr. Turk for recommendation. Nursing will contact patient in follow-up. Information/Education: patient/caller able to teach back. Caller agreeable to plan of care: yes. The following references were used: nursing clinical judgement and provider input sought, Dr. Turk . ANICS SUPERVISOR * Telephone Encounter - Janneth Gutiérrez - 06/01/2024 10:40 AM CST Caller is: patient Preferred Communication Method: [phone] (home) Reason for call: Pt stated that Dr. Turk increased his dose of Amlodipine from 5mg to 7.5mg, and he wanted him to let him know if he noticed any edema. The pt stated that in less than a week his ankles and feet swelled up significantly, so he stopped the medication on Saturday night and the edema has gone away. He also called to give BP's: Pulse 05/19 142/72 69 05/22 140/65 66 05/24 148/85 76 05/28 152/71 63 05/29 152/69 64 05/30 163/80 72 05/30 140/63 70 (1 hr later) 05/31/120/63 79 06/01 137/66 59 ANICS SUPERVISOR documented in this encounter Plan of Treatment Not on file documented as of this encounter Visit Diagnoses Not on filedocumented in this encounter
--- OUTSIDE RECORDS SUMMARY | 2024-08-16 12:31 | XMS_ITS | Clinical Summary ---
Author Organization [facility] Address [address] [place] [address] Care Team Providers Care Line Construction Superintendent Name Role Phone Unavailable Primary Care Provider Unavailabl e Source Comments Patient records contain information from all sites at [facility]. For routine questions regarding patient records, call [phone] during business hours, M-F 8:00 AM - 5:00 PM Central Time. Record requests for emergency care only can be directed to [phone] at any time.[facility] Medications cholecalciferol (VITAMIN D3) 25 mcg (1,000 Unit) capsule Take 1 tablet by mouth daily. 12/21/2020 Active glipiZIDE (GLUCOTROL) 5 mg tablet Take 5 mg by mouth. Active hydroCHLOROthia zide (HYDRODIURIL) 25 mg tablet Take 25 mg by mouth. 03/11/2021 Active lisinopriL (PRINIVIL,ZESTR IL) 40 mg tablet 05/03/2021 Active metFORMIN (GLUCOPHAGE) 500 mg tablet Take 500-1,000 mg by mouth. 11/19/2011 Active omeprazole (PriLOSEC) [address] capsule Take 20 mg by mouth daily. 11/19/2011 Active rosuvastatin (CRESTOR) 10 mg tablet Take 10 mg by mouth. 08/02/2020 Active tamsulosin (FLOMAX) 0.4 mg 24 hr capsule 2 (two) times a day. Active amLODIPine (Norvasc) 2.5 mg tablet Take 3 tablets (7.5 mg total) by mouth daily. 90 tablet 11 05/19/2024 Active Active Problems Problem Noted Date Diagnosed Date Hyponatremia 01/21/2023 Congenital Multiple Renal Cysts 01/21/2023 Gammopathy Monoclonal Nonspecific 09/18/2022 Urolithiasis 03/06/2022 Hyperparathyroidism Renal Secondary 09/12/2021 Chronic Kidney Disease (CKD) , Stage 3b Glomerular Filtration Rate (GFR) 30 To 44 03/18/2019 Diabetes Mellitus Type 2 With Diabetic Nephropat hy 03/18/2019 Hypertensive Chronic Kidney Disease With Stage 1 Through Stage 4 Chronic Kidney Disease, Or Unspecified Chronic Kidney Disease 03/18/2019 Osteodystrophy Renal 03/18/2019 Benign Prostatic Hyperplasia Hypertrophy With Ob struction 03/18/2019 Hyperlipidemia Mixed 03/18/2019 Gastroesophageal Reflux Disease 03/18/2019 Atherosclerosis Renal Artery 03/18/2019 Encounters Date Type Department Care Team Description 07/03/2024 Orders Only Division of Nephrology and Hypertension in [place], [place] [address] [place] [address] Jose Luis Turk Jr. D.O. Chronic Kidney Disease (CKD), Stage 3b Glomerular Filtration Rate (GFR) 30 To 44 (HCC) (Primary Dx); Hypertensive Chronic Kidney Disease With Stage 1 Through Stage 4 Chronic Kidney Disease, Or Unspecified Chronic Kidney Disease 06/01/2024 Clinical Communication Division of Nephrology and Hypertension in [place], [place] [address] [place] [address] Jose Luis Turk Jr. D.O. Blood Pressure Check 05/19/2024 Clinical Communication Division of Nephrology and Hypertension in [place], [place] [address] [place] [address] Jose Luis Turk Jr. D.O. amlodipine 2.5 mg (Priority 2) from Last 3 Months Social History Tobacco [...] Sign Reading Time Taken Comments Blood Pressure 164/74 04/14/2024 9:02 AM MEDIA JOB TITLES Pulse 67 04/14/2024 9:02 AM MEDIA JOB TITLES Temperature 36.2 C (97.2 F) 03/06/2022 9:25 AM CDT Respiratory Rate - - Oxygen Saturation - - Inhaled Oxygen Concentration - - Weight 70.9 kg (156 lb 4.9 oz) 04/14/2024 9:02 A M [employer]IA JOB TITLES Height 172.7 cm (5' 7.99) 04/09/2023 9:38 AM CS T Body Mass Index 23.77 04/09/2023 9:38 AM MEDIA JOB TITLES Plan of Treatment Health Maintenance Due Date Last Done Comments Creatinine Level (Kidney Function Test) 1945 Diabetic Office Visit with Foot Exam 1945 Hemoglobin A1C 1945 Hepatitis B Screening 1945 Hepatitis C Screening 1945 Sodium Level 1945 Urine Albumin 1945 Hepatitis B Vaccines (1 of 3 - Risk 3-dose series) 2005 RSV vaccine - (32-36 weeks) or 60+ years (1 - 1-dose 75+ series) 2020 Potassium Level 09/25/2022 09/25/2021 Dilated Eye Exam 05/17/2024 05/17/2023, 07/2021, 05/03/2020 Depression Screening (Annual PHQ-2) 06/03/2024 Fall Risk Screen (Annual) 06/03/2024 Office Visit for Blood Pressure Check / Re-check 07/15/2024 04/14/2024 COVID-19 Vaccine ( season) 2024 04/09/2024, 05/03/2023, 03/06/2022, Additional history exists DTaP,Tdap,and Td Vaccines (4 - Td or Tdap) 12/25/2028 12/25/2018, 12/25/2018, 12/21/2008 Pneumococcal vaccine (50+ years) Completed 03/10/2018, 05/09/2017, 02/10/2015 Zoster Vaccines Completed 08/13/2018, 03/10/2018 Influenza Vaccine Completed 04/09/2024, , 03/06/2022, Additional history exists IPV Vaccines Aged Out No longer eligi ble based on patient's age to complete this topic Insurance [facility] [id number]
[2024-08-16 12:56] VITALS: BP 163/77; PULSE 75; RESP 18; TEMP 36.6; O2SAT 99; BMI 26.8
--- NOTE | 2024-08-16 13:08 | CRLHL7_ITS ---
For Patients: As a result of the Century Cures Act, medical imaging exams and procedure reports are released immediately into your electronic medical record. You may view this report before your referring provider. If you have questions, please contact your health care provider. INDICATION: Palpable right upper quadrant mass. Lower right rib pain. TECHNIQUE: Axial noncontrast CT cuts were performed from above diaphragm to below the ischial tuberosities. COMPARISON: On 12/17/2022. FINDINGS: There are numerous renal cysts bilaterally. The largest arises from the anterior cortex of the right kidney and measures up to 7.1 cm in diameter. There is a new extensive subcapsular hematoma of the right kidney extending along the lateral inferior aspect of this kidney. The hematoma measures up to 11.0 x 3.0 cm in the axial plane and 11.5 cm cranial caudally. There is acute blood within a few of the cysts including the largest above described cyst. The liver, spleen, pancreas and adrenal glands appear normal. There is no free intraperitoneal air or fluid. There is moderate colonic diverticulosis without diverticulitis. The small bowel appears normal. The appendix is not inflamed. There are no enlarged retroperitoneal or mesenteric lymph nodes. There has likely been a previous trans urethral prostatectomy. The urinary bladder seminal vessels appear normal. There is no iliac or inguinal lymphadenopathy. There are no nodules or masses at the lung bases. There are no lytic or sclerotic skeletal lesions that are suspicious for malignancy. IMPRESSION: 1. Numerous bilateral renal cysts. There is a new large acute subcapsular hematoma of the right kidney with some blood within a few of the cysts. 2. Moderate colonic diverticulosis without diverticulitis. Please note that all CT scans at this facility use dose modulation, iterative reconstruction, and/or weight-based dosing when appropriate to reduce radiation dose to as low as reasonably achievable. Dictated by Ronaldo March MD @ 08/16/2024 2:32:03 PM (Electronically Signed)
--- NOTE | 2024-08-16 13:13 | ED_ITS ---
HPI - Abdominal Pain General Chief Complaint: Abdominal Pain Stated Complaint: low right rib pain Time Seen by Provider: 08/16/24 12:30 History of Present Illness HPI narrative: Patient is a 78-year-old gentleman comes in today with 10 days of abdominal pain. The pain is located in the right upper and mid abdomen. He is having pain with palpation and movement of his abdomen. He relates the pain to beginning when he was doing significant amount of snow shoveling. He has had no changes bowel or bladder no fevers no chills no night sweats no cough. He has had no difficulties with a low his diet and has had no diarrhea or nausea. He is able to palpate a lesion under his skin that is freely movable in the abdominal wall. Related Data Home Medications ?Medication ?Instructions ?Recorded ?Confirmed aspirin 81 mg tablet,delayed 81 mg PO QDAY 03/01/22 07/14/24 release vitamins A,C,E-gbqd-juwmlv 2,148 1 tab PO BID 03/01/22 07/14/24 mcg-113 mg-45 mg-17.4 mg tablet (PreserVision AREDS) antiarthritic combination no.2 900 mg PO BID 02/05/23 07/14/24 mg tablet (glucosamine-chondroitin) psyllium husk 3.4 gram/5.4 gram 1 tbsp PO QDAY 02/14/23 07/14/24 oral powder (Metamucil) cholecalciferol (vitamin D3) 25 25 mcg PO QDAY 06/13/23 07/14/24 mcg (1,000 unit) capsule Previous Rx's ?Medication ?Instructions ?Recorded amlodipine 5 mg tablet 5 mg PO QDAY #90 tabs 07/14/24 hydrochlorothiazide 25 mg tablet 25 mg PO DAILY #90 tabs 07/14/24 lisinopril 40 mg tablet 40 mg PO DAILY #90 tabs 07/14/24 metformin 500 mg tablet,extended 500 mg PO TID #270 tabs 07/14/24 release 24 hr omeprazole 20 mg capsule,delayed 20 mg PO DAILY #90 caps 07/14/24 release rosuvastatin 10 mg tablet 10 mg PO .hs #90 tabs 07/14/24 tamsulosin 0.4 mg capsule 0.4 mg PO DAILY #90 caps 07/14/24 Allergies Allergy/AdvReac Type Severity Reaction Status Date / Time clindamycin Allergy Severe Anaphylaxis Verified 07/14/24 11:03 penicillin V Allergy Severe tongue Verified 07/14/24 11:03 ankur crespo (Sulfonamide Allergy Unknown Unknown Verified 07/14/24 11:03 Antibiotics) Review of Systems Status of ROS Reports: 10 or more systems reviewed and unremarkable except as noted in History and below [facility] Medical History Cubital tunnel syndrome, bilateral ?G56.23 - Lesion of ulnar nerve, bilateral upper limbs (ICD-10) Lung nodule ?R91.1 - Solitary pulmonary nodule (ICD-10) Elevated lipase ?R74.8 - Abnormal levels of other serum enzymes (ICD-10) Knee injury ?S89.90XA - Unspecified injury of unspecified lower leg, initial encounter (ICD-10) Surgical History Status post trigger finger release (07/03/23) ?Z98.890 - Other specified postprocedural states (ICD-10) History of carpal tunnel surgery of left wrist (07/03/23) ?Z98.890 - Other specified postprocedural states (ICD-10) History of carpal tunnel surgery of right wrist (01/21/19) ?Z98.890 - Other specified postprocedural states (ICD-10) History of vasectomy ?Z98.52 - Vasectomy status (ICD-10) History of umbilical hernia repair ?Z98.890 - Other specified postprocedural states (ICD-10) ?Z87.19 - Personal history of other diseases of the digestive system (ICD-10) History of transurethral resection of prostate ?Z98.890 - Other specified postprocedural states (ICD-10) ?Z90.79 - Acquired absence of other genital organ(s) (ICD-10) History of cataract removal with insertion of prosthetic lens ?Z98.49 - Cataract extraction status, unspecified eye (ICD-10) ?Z96.1 - Presence of intraocular lens (ICD-10) Family History Father Aortic aneurysm High blood pressure Mother Diabetes Breast cancer Social History Narrative: What is your current living situation?: I presently have a place to live In the past 12 months, utilities in danger of being shut off: no In past 12 months, lack of transportation kept you from medical appts, meetings, work, or getting things needed for daily living: no In the past 12 mos, have been you worried that your food would run out before you had money to buy more?: never true In the past 12 mos, the food you bought just didn't last and you didn't have money to buy more?: never true Smoking Status: Current every day smoker What tobacco products do you use: cigarettes Do you use any of these nicotine containing products: None Second hand tobacco smoke exposure: No How often does anyone, including family, friends and others, physically hurt you : never How often does anyone, including family, friends and others, insult or talk down to you: never How often does anyone, including family, friends and others, threaten you with harm: never How often does anyone, including family, friends and others, scream or curse at you: never Exam Narrative: Exam Narrative: EXAM GENERAL: Patient appears comfortable and well. EYES: No scleral icterus. LYMPH: No supraclavicular or cervical lymphadenopathy. SKIN: Visible skin seen during exam normal or with benign process only. EXT: No dependent lower extremity pedal edema. HEART: Regular rate and rhythm with no murmurs, rubs, or gallops. LUNGS: Clear to auscultation bilaterally with no crackles or wheezes. ABD: Soft, non tender, non distended. 4 x 5 area of removal induration right upper quadrant. PSYCH: Good eye contact, speech is not pressured. Const: Vital Signs, click to edit/add: Vital Signs - 24 hr 08/16/24 12:56 Temperature 97.8 F Pulse Rate [Pulse Oximeter] 75 Respiratory Rate 18 Blood Pressure [Ri ght Upper Arm] 163/77 H Pulse Oximetry 99 Oxygen Delivery Me thod Room Air Course Course ED Course: Workup with a CT abdomen pelvis CBC comprehensive metabolic panel UA lipase pending. Will follow up based on those results. Vital Signs Vital signs: Initial Vital Signs Temperature 97.8 F 08/16/24 12:56 Temperature Source Temporal Artery Scan 08/16/24 12:56 Pulse Rate 75 08/16/24 12:56 Pulse Rhythm Regular 08/16/24 12:56 Respiratory Rate 18 08/16/24 12:56 Blood Pressure 163/77 H 08/16/24 12:56 Blood Pressure Mean 105 08/16/24 12:56 Blood Pressure Position Sitting 08/16/24 12:56 Pulse Oximetry 99 08/16/24 12:56 Oxygen Delivery Method Room Air 08/16/24 12:56 Vital Signs Temperature 97.8 F 08/16/24 12:56 Pulse Rate 75 08/16/24 12:56 Respiratory Rate 18 08/16/24 12:56 Blood Pressure 163/77 H 08/16/24 12:56 Pulse Oximetry 99 08/16/24 12:56 Oxygen Delivery Method Room Air 08/16/24 12:56 Temperature 97.8 F 08/16/24 12:56 Pulse Rate 75 08/16/24 12:56 Respiratory Rate 18 08/16/24 12:56 Blood Pressure 163/77 H 08/16/24 12:56 Pulse Oximetry 99 08/16/24 12:56 Oxygen Delivery Method Room Air 08/16/24 12:56 MDM - Abdominal Pain MDM Narrative Medical decision making narrative: Patient is a very nice 78-year-old gentleman comes in today with pain in the right side of his abdomen. Patient has polycystic ovaries and I can actually palpate his large cysts. Patient's creatinine previously was 2.1 out is 5.1. I.e. did get a CT without contrast and it does appear that the patient has bled into his right kidney cysts. Labs are otherwise stable. I am concerned about the loss of kidney function in the bleeding into the kidney. I did repeatedly asked him to stay in the hospital. I also asked if I could contact Nephrology he declines. He has a good relationship with Dr. Turk who we will contact tomorrow. Patient understands the danger of his situation and would like to go home. He states he has actually been feeling better the last few days. He takes no medications but is taking baby aspirin. I did ask him to hold his baby aspirin and tell he hears back from Nephrology. I will verify that he actually follows up with Nephrology as well. Will also have him hold his lisinopril due to his elevation in kidney function. Lab Data Labs: Lab Results 08/16/24 08/16/24 Range/Units 13:15 13:20 WBC 11.87 H (4.50-11.00) K/uL RBC 3.56 L (4.30-5.90) m/uL Hgb 12.2 L (13.5-17.5) gm/dL Hct 36.0 L (37.0-53.0) % MCV 101 H (80-100) fL MCH 34 (26-34) pg MCHC 34 (32-36) gm/dL RDW Coeff of Carrington 12.1 (11.5-15.5) % Plt Count 326 (140-440) K/uL Neut % (Auto) 75.8 H (42.0-72.0) % Lymph % (Auto) 12.7 L (20-44) % Dubois % (Auto) 10.5 (0.0-11.0) % Eos % (Auto) 0.6 (0.0-7.0) % Baso % (Auto) 0.2 (0.0-3.0) % Neut # (Auto) 9.00 H (1.7-7.0) K/uL Lymph # (Auto) 1.50 (0.90-2.90) K/uL Dubois # (Auto) 1.20 H (0.00-0.90) K/UL Eos # (Auto) 0.10 (0.00-0.50) K/uL Baso # (Auto) 0.00 (0.00-0.30) K/uL Abs Immat Gran (auto) 0.00 (0.00-0.30) K/uL Imm/Tot Granulo (auto) 0.2 % Sodium 134 L (135-149) mmol/L Potassium 4.0 (3.6-5.1) mmol/L Chloride 97 (96-114) mmol/L Carbon Dioxide 26 (20-32) mmol/L Anion Gap 11 (7-15) mEq/L BUN 59 H (7-30) mg/dL Creatinine 5.0 H (0.5-1.5) mg/dL Estimated Creat Clear 11.38 Estimated GFR 11 ml/min Glucose 144 H (60-115) mg/dL Calcium 9.1 (8.4-10.6) mg/dL Total Bilirubin 0.7 (0.1-1.5) mg/dL AST 18 (12-35) U/L ALT 17 (4-50) U/L Alkaline Phosphatase 82 (40-150) U/L Total Protein 7.0 (6.0-8.3) g/dL Albumin 3.8 (3.3-5.0) g/dL Lipase 88 (23-300) U/L Urine Color Yellow (Yellow) Urine Appearance Slightly Cloudy A (Clear) Urine pH 5.5 (5.0-8.5) Ur Specific Baring 1.025 (1.000-1.030) Urine Protein 3+ A (Negative) Urine Glucose (UA) Negative (Negative) Urine Ketones Negative (Negative) Urine Blood 1+ A (Negative) Urine Nitrite Negative (Negative) Urine Bilirubin Negative (Negative) Urine Urobilinogen 0.2 (0.2-1.0) Ur Leukocyte Esterase Negative (Negative) Urine RBC 2-5 A (0-2) Urine WBC 2-5 (0-5) Ur Squamous Epith Cells Few (None-Few) Urine Bacteria Moderate A (None) Fine Granular Casts Moderate A (None) Discharge Plan Discharge Clinical Impression: Kidney polycystic disease Patient Disposition: Home, Self-Care Condition: Stable Additional Instructions: Hold aspirin Hold lisinopril Contact Nephrology tomorrow to discuss next steps. Contact Dr. Coleman in his clinic if further help is needed. [phone]. Activity Level: No Restrictions Discharge Diet: Regular Prescriptions: No Action amlodipine 5 mg tablet 5 mg PO QDAY Qty: 90 3RF hydrochlorothiazide 25 mg tablet 25 mg PO DAILY Qty: 90 3RF lisinopril 40 mg tablet 40 mg PO DAILY Qty: 90 3RF metformin 500 mg tablet extended release 24 hr 500 mg PO TID Qty: 270 3RF omeprazole 20 mg capsule,delayed release(DR/EC) 20 mg PO DAILY Qty: 90 3RF rosuvastatin 10 mg tablet 10 mg PO .hs Qty: 90 3RF tamsulosin 0.4 mg capsule 0.4 mg PO DAILY Qty: 90 3RF PreserVision AREDS 2,148 mcg-113 mg-45 mg-17.4mg tablet 1 tab PO BID Rx Instructions: administer with AM and PM meals aspirin 81 mg tablet,delayed release (DR/EC) 81 mg PO QDAY glucosamine-chondroitin 900 mg tablet PO BID Metamucil 3.4 gram/5.4 gram powder 1 tbsp PO QDAY Rx Instructions: mix into at least 8 oz of water or juice before administering cholecalciferol (vitamin D3) 25 mcg (1,000 unit) capsule 25 mcg PO QDAY Follow Up/Referrals: Misti Nash MD [Primary Care Provider] - Stand Alone Forms: [facility] Info Instructions
[2024-08-16 13:24] LABS: Appearance Urine Slightly Cloudy (Clear); Bilirubin Urine Negative (Negative); Blood Urine 1+ (Negative); Color Urine Yellow (Yellow); Glucose Urine Negative (Negative); Ketones Urine Negative (Negative); Leukocyte Esterase Urine Negative (Negative); Nitrite Urine Negative (Negative); Protein Urine 3+ (Negative); Specific Gravity Urine 1.025 (1.000-1.030); Urobilinogen Urine 0.2 (0.2-1.0); pH Urine 5.5 (5.0-8.5)
[2024-08-16 13:37] LABS: Bacteria Urine Moderate; Fine Granular Casts Urine Moderate; Squamous Epithelial Cell Urine Few (None-Few)
[2024-08-16 13:41] LABS: Basophils Percent Auto 0.2 % (0.0-3.0); Eosinophils Percent Auto 0.6 % (0.0-7.0); Hemoglobin* 12.2 gm/dL (13.5-17.5); Immature Granulocytes Pct Auto 0.2 %; Lymphocytes Percent Auto 12.7 % (20-44); Mean Corpuscular HGB Conc 34 gm/dL (32-36); Mean Corpuscular Hemoglobin 34 pg (26-34); Mean Corpuscular Volume 101 fL (80-100); Monocytes Percent Auto 10.5 % (0.0-11.0); Neutrophils Percent Auto 75.8 % (42.0-72.0); Platelet Count* 326 K/uL (140-440); RDW Coefficient of Variation % 12.1 % (11.5-15.5); Red Blood Count 3.56 m/uL (4.30-5.90); White Blood Count* 11.87 K/uL (4.50-11.00)
[2024-08-16 13:49] LABS: Albumin* 3.8 g/dL (3.3-5.0)
[2024-08-16 13:50] LABS: Chloride* 97 mmol/L (96-114); Sodium* 134 mmol/L (135-149)
[2024-08-16 13:52] LABS: Anion Gap 11 mEq/L (7-15); Bilirubin Total* 0.7 mg/dL (0.1-1.5); Blood Urea Nitrogen* 59 mg/dL (7-30); Carbon Dioxide* 26 mmol/L (20-32); Est. Creatinine Clearance* 11.38; Estimated Glomerular Filt Rate 11 ml/min; Slide Review Reflex No
[2024-08-16 13:53] LABS: Alanine Aminotransferase* 17 U/L (4-50); Alkaline Phosphatase* 82 U/L (40-150); Aspartate Amino Transferase* 18 U/L (12-35); Calcium* 9.1 mg/dL (8.4-10.6); Glucose* 144 mg/dL (60-115); Lipase* 88 U/L (23-300)
--- OUTSIDE RECORDS SUMMARY | 2024-08-16 15:00 | XMS_ITS | Encounter Summary ---
Author Organization [facility] Address [address] [place] [address] Care Team Providers Care Hot Frame Tender Name Role Phone Unavailable Primary Care Provider Unavailabl e Reason for Referral * Outpatient (Routine) - Authorized Specialty Diagnoses / Procedures Referred By Contac t Referred To Contact Nephrology and Hypertension Jose Luis Turk Jr., D.O. [address] [place] [phone] Phone: tel: fax: [facility] Referral ID Status Reason Start Date Expiration Date V isits Requested Visits Authorized [id number] Authorized 07/03/2024 01/02/2026 1 1 RMATION RECEPTIONIST Encounter Details Date Type Department Care Team (Late st Contact Info) Description 07/03/2024 Orders Only Division of Nephrology and Hypertension in [place], [place] [address] [place] [phone] Jose Luis Turk Jr., D.OMartine [address] [place] [phone] Chronic Kidney Disease (CKD), Stage 3b Glomerular [...]
--- OUTSIDE RECORDS SUMMARY | 2024-08-16 15:00 | XMS_ITS | Encounter Summary ---
Author Organization [facility] Address [address] [place] [id number] Care Team Providers Care Tax Assistant Name Role Phone Unavailable Primary Care Provider Unavailabl e Reason for Visit * Reason Onset Date Comments Blood Pressure Check 06/01/2024 Encounter Details Date Type Department Care Team (Latest Contact Info) Description 06/01/2024 Clinical Communication Division of Nephrology and Hypertension in [place], [place] [address] [place] [address] Jose Luis Turk Jr., D.O. [address] [place] [address] Blood Pressure Check Social History Tobacco Use [...] Sosa M.S.N., R.N. - 07/02/2024 2:02 PM WOODWORK SALVAGE INSPECTOR Addended by: CHARLOTTE SOSA on: 07/02/2024 02:02 PM Modules accepted: Orders WORK SALVAGE INSPECTOR * Telephone Encounter - Jatinder Greco R.NMartine - 06/15/2024 10:15 AM WOODWORK SALVAGE INSPECTOR SUBJECTIVE CHIEF COMPLAINT / REASON FOR CALL [...] following references were used: nursing clinical judgement WORK SALVAGE INSPECTOR * Telephone Encounter - Jen Jenkins R.N. - 06/05/2024 8:51 AM WOODWORK SALVAGE INSPECTOR SUBJECTIVE CHIEF COMPLAINT / REASON FOR CALL Blood Pressure Check ASSESSMENT Primary Layer Out Plate Glass: Dr. Turk Diagnosis: CKD secondary to diabetes, [...] 152/69, pulse 64 05/30/24: 163/80, pulse 72 (dyed raw stock blower feeder before meds) 05/30/24: 140/63. pulse 70 (1 [...] and provider input sought, Dr. Turk . WORK SALVAGE INSPECTOR * Telephone Encounter - Janneth Gutiérrez - 06/01/2024 10:40 AM CST Caller is: patient Preferred Communication Method: [phone] (home) Reason for call: Pt stated that Dr. uTrk increased his dose of Amlodipine from 5mg [...] hr later) 05/31/120/63 79 06/01 137/66 59 WORK SALVAGE INSPECTOR documented in this encounter Plan of Treatment Not on file documented as of this encounter Visit Diagnoses Not on filedocumented in this encounter
--- OUTSIDE RECORDS SUMMARY | 2024-08-16 15:00 | XMS_ITS | Clinical Summary ---
Author Organization [facility] Address [address], [place] [address] Care Team Providers Care Writer Technical Publications Name Role Phone Anastacio Mayberry MD Primary Care Provider [phone] Source Comments You are receiving this document [...] for each transition of care or referral. [employer] Allergies Active Allergy Reactions Criticality Noted Date [...] DENTAL HP PREVENTIVE FI DENTAL Care Teams Writer Technical Publications Relationship Specialty Start Date End Date Anastacio Mayberry MD [address] [place] [address] PCP - General Family Practice 09/23/17
--- OUTSIDE RECORDS SUMMARY | 2024-08-16 15:00 | XMS_ITS | Clinical Summary ---
Author Organization [facility] Address [address] [place] [address] Care Team Providers Care Mems Process Engineer Name Role Phone Pcp, No Primary Care [...] 0 11/19/2011 Active GLUCOSAMINE/MSM /CHONDROITIN A (GLUCOSAMINE GWH-CLT-AIYRPJH ITN) 500-83-400 mg tab Take 1 Tablet by mouth once daily. 0 08/09/2014 Active vit C,G-Dl-frvzi-valeriy tein-zeaxan capsule Take 1 capsule by mouth [...] on file Legal Sex Male 5:25 AM MANAGER STUDENT SERVICES Gender Identity Not on file Sexual Orientation [...] 03/10/2018 Insurance MEDICARE ADVANTAGE [place] [id number] MEDICARE PART A HB ONLY Advance Directives * Full Code (Latest Code Status on File) Date Activated Date Inactivated Comments 09/29/2021 8:51 AM 09/30/2021 4:19 PM Question Answer Comments Code Status Discussion: Unable to Assess Preferences, Provider to review later Care Teams Mems Process Engineer Relationship Specialty Start Date End Date Pcp, No . PCP - General 09/20/21
--- OUTSIDE RECORDS SUMMARY | 2024-08-16 15:01 | XMS_ITS | Clinical Summary ---
Author Organization [facility] Address [address] [place] [address] Care Team Providers Care Insulation Batting Machine Operator Name Role Phone Unavailable Primary Care Provider Unavailabl e Source Comments Patient records contain information from all sites at [facility]. For routine questions regarding patient records, call [phone] during business hours, M-F 8:00 AM - 5:00 PM Central Time. Record requests for emergency care only can be directed to [phone] at any time.[facility] Medications cholecalciferol (VITAMIN D3) 25 mcg (1,000 [...] Only Division of Nephrology and Hypertension in [place], [place] [address] [place] [address] Jose Luis Turk Jr. D.O. Chronic Kidney Disease (CKD), Stage 3b Glomerular Filtration Rate (GFR) 30 To 44 (HCC) (Primary Dx); Hypertensive Chronic Kidney Disease With Stage 1 Through Stage 4 Chronic Kidney Disease, Or Unspecified Chronic Kidney Disease 06/01/2024 Clinical Communication Division of Nephrology and Hypertension in [place], [place] [address] [place] [address] Jose Luis Turk Jr. D.O. Blood Pressure Check 05/19/2024 Clinical Communication Division of Nephrology and Hypertension in [place], [place] [address] [place] [address] Jose Luis Turk Jr. D.O. amlodipine 2.5 [...] Comments Blood Pressure 164/74 04/14/2024 9:02 AM HYDROELECTRIC OPERATOR Pulse 67 04/14/2024 9:02 AM HYDROELECTRIC OPERATOR Temperature 36.2 C (97.2 F) 03/06/2022 9:25 AM CDT Respiratory Rate - - Oxygen Saturation - - Inhaled Oxygen Concentration - - Weight 70.9 kg (156 lb 4.9 oz) 04/14/2024 9:02 A M HYDROELECTRIC OPERATOR Height 172.7 cm (5' 7.99) 04/09/2023 9:38 AM CS T Body Mass Index 23.77 04/09/2023 9:38 AM HYDROELECTRIC OPERATOR Plan of Treatment Health Maintenance Due Date [...] patient's age to complete this topic Insurance [facility] [place] [id number]
== END 2024-08-16 15:14 | disposition home or self-care (01) ==
LOC: ED 14:59
PROVIDERS: Emergency Provider Internal Medicine; PCP Family Medicine
DX: Q61.3 Polycystic kidney, unspecified (principal)
CPT/HCPCS: 36415; 74176; 80053; 81001; 81003; 83690; 85025; 87086; 99283; 99284

== ENCOUNTER 2024-09-09 08:33 | Outpatient (CLI) | payer MEDICARE, SELFPAY | END 2024-09-09 08:34 | disposition home or self-care (01) | LOC: NFLDREF 09-14 16:27 | PROVIDERS: PCP Family Medicine; Referring Provider Family Medicine; Visit Provider Internal Medicine Nephrology | DX: E11.22 Type 2 diabetes mellitus with diabetic chronic kidney disease (principal); N18.32 Chronic kidney disease, stage 3b; I10 Essential (primary) hypertension; D47.2 Monoclonal gammopathy; E78.5 Hyperlipidemia, unspecified; R10.11 Right upper quadrant pain | CPT/HCPCS: 80061; 80069; 82043; 82570; 82784; 83520; 83970; 84075; 84155; 84165; 84460; 84550; 86140; 86334; 87086 ==

== ENCOUNTER 2024-11-12 08:33 | Outpatient (CLI) | payer MEDICARE, SELFPAY | END 2024-11-12 08:34 | disposition home or self-care (01) | LOC: NFLDREF 11-13 00:19 | PROVIDERS: PCP Family Medicine; Referring Provider Family Medicine; Visit Provider Internal Medicine Nephrology | DX: N18.32 Chronic kidney disease, stage 3b (principal); I10 Essential (primary) hypertension; E11.22 Type 2 diabetes mellitus with diabetic chronic kidney disease; Q61.3 Polycystic kidney, unspecified | CPT/HCPCS: 80069; 82043; 82570; 82607; 82728; 82746; 83540; 83550; 83970; 84550 ==

== ENCOUNTER 2025-04-21 09:49 | Outpatient (CLI) | payer MEDICARE, SELFPAY ==
--- NOTE | 2025-04-21 10:00 | CRLHL7_ITS ---
For Patients: As a result of the Century Cures Act, medical imaging exams and procedure reports are released immediately into your electronic medical record. You may view this report before your referring provider. If you have questions, please contact your health care provider. INDICATION: Renal cyst follow-up. TECHNIQUE: CT abdomen and pelvis acquired without contrast. COMPARISON: CT 08/16/2024, PET-CT 01/17/2023, CT 12/17/2022 and 04/26/2021. FINDINGS: Lower chest: Unremarkable. Liver: Unremarkable. Spleen: Unremarkable. Pancreas: Unremarkable. Gallbladder and bile ducts: No calcified stones or biliary ductal dilatation. Kidneys: Right upper pole 4 mm stone is unchanged. No hydronephrosis. Multiple bilateral simple and hemorrhagic/proteinaceous cysts measuring up to 6.8 cm in the right lower pole persist and are similar or slightly decreased. Right subcapsular hematoma has resolved. Adrenal glands: Unremarkable. GI tract: Colonic diverticulosis without evidence of acute diverticulitis. No obstruction or acute inflammatory change. No free air or free fluid. Lymph nodes: No pathologic lymphadenopathy. Vascular structures: Atherosclerotic disease. No abdominal aortic aneurysm. Pelvic Organs: Prostatomegaly with suspected prior TURP, as before. The bladder as imaged is unremarkable. Bones: No acute or suspicious abnormality. Degenerative changes spine and pelvis. IMPRESSION: 1. Bilateral simple and hemorrhagic/proteinaceous renal cysts are similar or slightly decreased. Previous right subcapsular hematoma has resolved. 2. Stable right nonobstructing nephrolithiasis. 3. No acute intra-abdominal or pelvic abnormality. Dictated by Lex Marcial MD @ 04/21/2025 11:02:37 AM Please note that all CT scans at this facility use dose modulation, iterative reconstruction, and/or weight-based dosing when appropriate to reduce radiation dose to as low as reasonably achievable. Dictated by: Lex Marcial MD @ 04/21/2025 11:03:06 (Electronically Signed)
== END 2025-04-21 09:50 | disposition home or self-care (01) ==
LOC: CT 09:50
PROVIDERS: PCP Family Medicine; Visit Provider Internal Medicine Nephrology
DX: N28.1 Cyst of kidney, acquired (principal); N20.0 Calculus of kidney; N40.0 Benign prostatic hyperplasia without lower urinary tract symptoms; K57.30 Diverticulosis of large intestine without perforation or abscess without bleeding; I70.90 Unspecified atherosclerosis; M48.9 Spondylopathy, unspecified
CPT/HCPCS: 74176

== ENCOUNTER 2025-05-11 08:35 | Outpatient (CLI) | payer MEDICARE, SELFPAY | END 2025-05-11 08:36 | disposition home or self-care (01) | LOC: NFLDREF 05-17 17:48 | PROVIDERS: PCP Family Medicine; Referring Provider Family Medicine; Visit Provider Internal Medicine Nephrology | DX: E11.22 Type 2 diabetes mellitus with diabetic chronic kidney disease (principal); I12.9 Hypertensive chronic kidney disease with stage 1 through stage 4 chronic kidney disease, or unspecified chronic kidney disease; N18.4 Chronic kidney disease, stage 4 (severe); D64.9 Anemia, unspecified | CPT/HCPCS: 80069; 82043; 82570; 82728; 82784; 83521; 83540; 83550; 83970; 84155; 84165; 84550; 86140; 86334; 87086 ==